=== PATIENT | female | born 1955 | race Caucasian/White ===

== ENCOUNTER 2021-02-18 10:27 | Outpatient (REF) | payer MEDICARE, MEDICAID, SELFPAY | END 2021-02-18 10:28 | disposition home or self-care (01) | LOC: HO.LAB 10:27 | PROVIDERS: Visit Provider Internal Medicine | DX: Z20.822 Contact with and (suspected) exposure to COVID-19 (principal) | CPT/HCPCS: C9803; U0003; U0005 ==

== ENCOUNTER 2021-04-25 10:35 | Outpatient (REF) | payer MEDICARE, MEDICAID, SELFPAY ==
--- NOTE | ~2021-04-25 | US_ITS ---
EXAMINATION: US VENOUS ULTRASOUND WITH DOPPLER LOWER EXTREMITY, RIGHT CLINICAL INFORMATION: Right lower extremity pain and swelling. Assess for occult DVT. COMPARISON: None TECHNIQUE: Ultrasound of the deep veins is performed from the hip to the calf with compression sonography and color and pulse Doppler assessment. Spectral analysis with color-flow imaging is performed. FINDINGS: There is normal venous compression and respiratory variation and augmented flow. The visualized common femoral vein, superficial femoral vein, profunda femoral vein, popliteal vein, and the trifurcation region shows no evidence of deep venous thrombosis. No popliteal fossa cyst demonstrated. US/US venous duplex LE RT IMPRESSION: No DVT demonstrated in the right lower extremity.
== END 2021-04-25 10:36 | disposition home or self-care (01) ==
LOC: HO.US 10:35
PROVIDERS: PCP Internal Medicine; Visit Provider Emergency Medicine
DX: M79.604 Pain in right leg (principal)
CPT/HCPCS: 93971

== ENCOUNTER 2021-06-16 11:36 | Outpatient (REF) | payer MEDICARE, MEDICAID, SELFPAY ==
--- NOTE | ~2021-06-16 | MM_ITS ---
EXAMINATION: MM SCREENING DIGITAL BREAST TOMOSYNTHESIS, BILATERAL CLINICAL INFORMATION: Screening. Asymptomatic. Prior history benign excisional left breast surgery, 2016. The lifetime risk of breast cancer based on the Tyrer-Cuzick Model is 10%. COMPARISON: Mammography: 09/29/2019, 03/28/2019, 03/18/2019, 03/08/2018, 03/07/2017 TECHNIQUE: Digital breast tomosynthesis is performed in both the craniocaudal and mediolateral oblique views along with computer-aided detection (CAD). Synthesized 2D images are generated from the tomosynthesis. FINDINGS: The breasts are heterogeneously dense, which may obscure small masses (ACR BI-RADS breast composition Category c). Parenchymal pattern is similar to prior studies. There is no developing density or interval mass or architectural abnormality. The right breast has stable punctate uniform round calcifications central breast mid depth similar to prior exams dating back to 2017. Left breast has post surgical changes posterior 11:30 o'clock position with mild scarring and benign oil cyst. There are new calcifications overlying the oil cyst, likely early dystrophic. Patient will be recalled for additional imaging. The axilla are unremarkable. MM/MM tomosynthesis screening BI IMPRESSION: 1. Left: New calcifications overlying left surgical scar, likely early dystrophic, associated with oil cyst. 2. Right: There are no significant changes from prior study. ASSESSMENT: BI-RADS 0: Incomplete - Need Additional Imaging Evaluation RECOMMENDATION: 1. Additional views of the left breast (magnification CC, magnification LM). 2. Radiology department staff will contact the patient for additional imaging. This patient's information was entered into a reminder system with a target due date for their next mammogram.
== END 2021-06-16 11:37 | disposition home or self-care (01) ==
LOC: HO.MAMMO 11:36
PROVIDERS: Visit Provider Internal Medicine
DX: Z12.31 Encounter for screening mammogram for malignant neoplasm of breast (principal)
CPT/HCPCS: 77063; 77067

== ENCOUNTER 2021-06-17 09:23 | Emergency (ER) | payer MEDICARE, SELFPAY ==
--- NOTE | ~2021-06-17 | US_ITS ---
EXAMINATION: US VENOUS ULTRASOUND WITH DOPPLER LOWER EXTREMITY, RIGHT CLINICAL INFORMATION: Rule out DVT. Pain COMPARISON: April 25, 2021 TECHNIQUE: Ultrasound of the deep veins is performed from the hip to the calf with compression sonography and color and pulse Doppler assessment. Spectral analysis with color-flow imaging is performed. FINDINGS: There is normal venous compression and respiratory variation and augmented flow. The visualized common femoral vein, superficial femoral vein, profunda femoral vein, popliteal vein, and the trifurcation region shows no evidence of deep venous thrombosis. There is no significant popliteal fossa cyst. No popliteal artery aneurysm. US/US venous duplex LE RT IMPRESSION: No acute DVT demonstrated in the right lower extremity.
--- NOTE | ~2021-06-17 | XR_ITS ---
EXAMINATION: XR TIBIA AND FIBULA, RIGHT CLINICAL INFORMATION: Tenderness right anterior distal lower extremity COMPARISON: None TECHNIQUE: AP and lateral views of the right tibia and fibula were obtained. FINDINGS: The bones and soft tissues are normal. No fracture. No osseous lesions. XR/XR tibia fibula RT 2V IMPRESSION: Unremarkable right tibia and fibula.
[2021-06-17 09:52] VITALS: BP 133/84; PULSE 88; RESP 18; TEMP 36.6; O2SAT 98; BMI 29.2
--- NOTE | 2021-06-17 10:05 | ED_ITS ---
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 No trauma, no falls. 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 CPA states patient was on antibiotics in the past, and since WEAPONS SPECIALIST has started working with the patient 1 week ago, she has noticed that the redness over the patient's right anterior jay has worsened. No fevers, no nausea, vomiting, or other complaints. Per pt's med list, she was placed on Doxy and Cefadroxil on 04/16/21 for 7 days. Related Data Previous Rx's Medication Instructions Recorded cephalexin 500 mg capsule 500 mg PO QID 7 Days #28 cap 06/17/21 Allergies Allergy/AdvReac Type Severity Reaction Status Date / Time No Known Allergies Allergy Verified 06/17/21 10:58 Review of Systems Constitutional: Constitutional: Denies body ache(s), Denies chills, Denies fatigue, Denies fever(s), Denies headache(s), Denies malaise and Denies weakness Eyes: Eyes: Denies diplopia ENT: Denies vertigo, Denies dizziness, Denies otalgia, Denies headache(s), Denies mouth pain, Denies post nasal drip, Denies sinus pain, Denies sinus pressure, Denies sore throat and Denies throat swelling Cardiovascular: Cardiovascular: Denies chest pain, Denies syncope, Denies leg edema, Denies lightheadedness, Denies Loss of Consciousness, Denies palpitations and Denies dyspnea Respiratory: Respiratory: Denies chest congestion, Denies cough and Denies dyspnea Gastrointestinal: Gastrointestinal: Denies abdominal pain, Denies hematochezia, Denies constipation, Denies diarrhea and Denies vomiting Musculoskeletal: Musculoskeletal: Reports no additional musculoskeletal complaints, Denies numbness and Denies tingling Integumentary/Breasts: Skin/Breast: Reports erythema, Reports rash and Reports skin pain Neurologic: Denies confusion, Denies vertigo, Denies dizziness, Denies syncope, Denies headache(s), Denies numbness, Denies Sensory deficit (Neuro), Denies tingling and Denies weakness Psychiatric: Psychiatric: Denies anxiety, Denies confusion and Denies depression Endocrine: Endocrine: Denies fatigue and Denies palpitations Allergic/Immunologic: Allergic/Immunologic: Denies throat swelling PMFSH Past Medical History Medical History (Updated 06/17/21 @ 12:39 by ANJELICA Monzon) Glaucoma Social History Social History Advance Directives: No Advance Directives Information Provided: No Physical Exam Vital Signs: Vital Signs: Last Vital Signs Temp 97.7 F 06/17/21 12:15 Pulse 58 06/17/21 12:15 Resp 15 06/17/21 12:15 BP 127/70 06/17/21 12:15 Pulse Ox 99 06/17/21 12:15 Body Mass Index 29.2 Const: General: No confusion Nutritional Appearance: well nourished Orientation/consciousness: No confusion Limitations: no limitations HENMT: Head: Yes normal to inspection, Yes normocephalic and Yes atraumatic Ears: hearing grossly normal bilaterally, external ears normal, TM's normal bilaterally and EAC's normal General nose exam: Normal external nose present Face and sinus: Yes normal facial exam and Yes sinuses nontender Mouth: Normal oral and palatal mucosa present Throat: Yes posterior oropharynx normal Eyes: Conjunctivae: conjunctivae normal Pupils: Equal, round and reactive pupils present EOM: EOMs intact bilaterally Neck: Neck: Yes full ROM, Yes no lymphadenopathy and Yes supple Resp: Effort & Inspection: normal respiratory effort and able to speak in complete sentences Auscultation: clear to auscultation bilaterally, no crackles, no rales, no rhonchi and no wheezes Cardio: Rate: regular rate Rhythm: regular rhythm Heart sounds: S1 normal heart sound present and S2 normal heart sound present GI: Inspection: Yes normal to inspection Palpation (GI): Soft to palpation, nontender, no guarding and not rigid Percussion: Yes normal to percussion Auscultation: normal bowel sounds Skin: Other: 3 cm skin redness on pt's distal right anterior jay. Patient has not talked lower extremity pulses, sensation, motor strength. Neuro: General: No confusion Cranial nerves: Yes Equal, round and reactive pupils present Sensory Exam: No Sensory deficit (Neuro) Extrem: General: Yes normal to inspection and Yes full ROM Psych: Appearance: grossly normal Affect: normal affect Attitude: cooperative Thought process: Normal thought process present Course Course Course Narrative: 58-year-old female presents for right leg redness, swelling, and warmth that is been worsening for last week. History of cellulitis. 3 cm skin redness on pt's distal right anterior jay. Patient has intact lower extremity pulses, sensation, motor strength. Ultrasound negative for DVT, x-ray negative for fracture dislocation or osseous lesion. Gave Keflex, and prescribed 7 days of Keflex at home. Counseled patient to follow-up with the primary care provider. 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 Patient verbalized agreement and understanding of the plan Discharge Plan Discharge Clinical Impression: Cellulitis Qualifiers: Site of cellulitis: extremity Site of cellulitis of extremity: lower extremity Laterality: right Qualified Code(s): L03.115 - Cellulitis of right lower limb Patient Disposition: Home, Self-Care Instructions: Cellulitis (ED) Additional Instructions: Please take your antibiotics every 6 hours for the next 7 days. Please call your primary care provider for follow-up appointment in the next 2-3 days. Please return to the emergency room if you have fevers, worsening pain, wors ening redness, or any other new or concerning symptoms. Harvel hugo antibi?ticos cada 6 horas yaima los pr?ximos 7 d?as. Llame a cardenas proveedor de atenci?n primaria para jaspal charles de seguimiento en los pr?ximos 2-3 d?as. Regrese a la talia de emergencias si tiene fiebre, empeoramiento del dolor, empeoramiento del enrojecimiento o cualquier otro s?ntoma nuevo o preocupante Prescriptions: New cephalexin 500 mg capsule 500 mg PO QID 7 Days Qty: 28 RF: 0
[2021-06-17 10:40] VITALS: BP 122/77; PULSE 63; RESP 15; TEMP 37.2; O2SAT 99
[2021-06-17 12:15] VITALS: BP 127/70; PULSE 58; RESP 15; TEMP 36.5; O2SAT 99
[2021-06-17] MEDS: cephALEXin 500 MG CAPSULE PO (12:43)
--- NOTE | 2021-06-17 18:46 | ED.GENADULT ---
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 1 week ago Patient has not had any fevers or any other complaints Related Data Previous Rx's Medication Instructions Recorded cephalexin 500 mg capsule 500 mg PO QID 7 Days #28 cap 06/17/21 Allergies Allergy/AdvReac Type Severity Reaction Status Date / Time No Known Allergies Allergy Verified 06/17/21 10:58 Review of Systems Review of Systems: Constitutional : No Weight loss, No Fever, No Chills, No Night Sweats,No Fatigue, No Malaise ENT/Mouth : No Hearing loss, No Ear Pain, No Nasal Congestion, NoSinus Pain, No Hoarseness, No sore throat, No Rhinorrhea, NoSwallowing Difficulty Eyes: No Eye Pain, No Swelling, No Redness, No Foreign Body, NoDischarge, No Vision Changes Cardiovascular : No Chest Pain, No SOB, No Dyspnea on Exertion, NoOrthopnea, No Edema, No Palpitations Respiratory : No Cough, No Sputum, No Wheezing, No Smoke Exposure, No Dyspnea Gastrointestinal : No Nausea, No Vomiting, No Diarrhea, NoConstipation, No abdominal Pain, No Hematochezia, No Melena Genitourinary : no irregular bleeding, No Dysuria, No UrinaryFrequency, No Hematuria, No Urinary Incontinence, No Urgency, No FlankPain, No Urinary Flow Changes, No Hesitancy Musculoskeletal : No joint pain, No Myalgias, No Joint Swelling Skin : rash Neuro : No Weakness, No Numbness, No Paresthesias, No Loss ofConsciousness, No Dizziness, No Headache Psych : mild anxiety, tremors in hands, , No Depression, No SI/HI/AH/VH, No Social Issues, Endocrine : No Polyuria, No Polydipsia, No Temperature Intolerance [facility] Past Medical History Medical History (Updated 06/17/21 @ 12:39 by ANJELICA Monzon) Glaucoma Social History Social History Advance Directives: No Advance Directives Information Provided: No Physical Exam Vital Signs: Vital Signs: Last Vital Signs Temp 97.7 F 06/17/21 12:15 Pulse 58 06/17/21 12:15 Resp 15 06/17/21 12:15 BP 127/70 06/17/21 12:15 Pulse Ox 99 06/17/21 12:15 Body Mass Index 29.2 Const: General: cooperative, no acute distress, well developed, alert and awake Nutritional Appearance: well nourished Orientation/consciousness: patient oriented x3 Limitations: no limitations Eyes: Pupils: Equal, round and reactive pupils present Neck: Neck: Yes full ROM, Yes no lymphadenopathy and Yes supple Resp: Effort & Inspection: normal respiratory effort and able to speak in complete sentences Auscultation: clear to auscultation bilaterally, no crackles, no rales, no rhonchi and no wheezes Cardio: Rate: regular rate Rhythm: regular rhythm Heart sounds: S1 normal heart sound present and S2 normal heart sound present GI: Inspection: Yes normal to inspection Palpation (GI): Soft to palpation, nontender, no guarding and not rigid Percussion: Yes normal to percussion Auscultation: normal bowel sounds Skin: Rashes: rashes noted maculopapular rash right anterior leg Neuro: General: patient oriented x3, tone normal and moves all extremities Cranial nerves: Yes Equal, round and reactive pupils present Extrem: General: Yes normal to inspection and Yes full ROM Psych: Appearance: grossly normal Affect: normal affect Attitude: cooperative Thought process: Normal thought process present Course Course Course Narrative: 66-year-old female with worsening 3 cm area on right anterior distal jay that is red, swollen, and warm. X-ray is unremarkable, ultrasound shows no DVT. Send patient home on cephalexin, counseled return precautions. Discharge Plan Discharge Clinical Impression: Cellulitis Qualifiers: Site of cellulitis: extremity Site of cellulitis of extremity: lower extremity Laterality: right Qualified Code(s): L03.115 - Cellulitis of right lower limb Patient Disposition: Home, Self-Care Instructions: Cellulitis (ED) Additional Instructions: Please take your antibiotics every 6 hours for the next 7 days. Please call your primary care provider for follow-up appointment in the next 2-3 days. Please return to the emergency room if you have fevers, worsening pain, worsening redness, or any other new or concerning symptoms. [place] hugo antibi?ticos cada 6 horas yaima los pr?ximos 7 d?as. Llame a cardenas proveedor de atenci?n primaria para jaspal charles de seguimiento en los pr?ximos 2-3 d?as. Regrese a la talia de emergencias si tiene fiebre, empeoramiento del dolor, empeoramiento del enrojecimiento o cualquier otro s?ntoma nuevo o preocupante Prescriptions: New cephalexin 500 mg capsule 500 mg PO QID 7 Days Qty: 28 RF: 0 Interventions: ED Discharge Assessment Last Done: 06/17/21 13:14 Discharge Date/Time: 06/17/21 13:15
== END 2021-06-17 13:15 | disposition home or self-care (01) ==
PROVIDERS: Emergency Provider Emergency Medicine; PCP Internal Medicine
DX: L03.115 Cellulitis of right lower limb (principal); R60.0 Localized edema; Z79.899 Other long term (current) drug therapy
CPT/HCPCS: 73590; 93971; 99283; 99284

== ENCOUNTER 2021-06-24 10:46 | Emergency (ER) | payer MEDICARE, SELFPAY ==
--- NOTE | ~2021-06-24 | XR_ITS ---
EXAMINATION: XR ANKLE, RIGHT CLINICAL INFORMATION: Pain COMPARISON: None TECHNIQUE: AP, lateral, and mortise views of the right ankle. FINDINGS: The bones and soft tissues are notable for bulky calcaneal spurring.. No fracture. Alignment is anatomic. Joint spaces are maintained. No joint effusion. XR/XR ankle RT 2V IMPRESSION: No fracture.
[2021-06-24 11:14] VITALS: BP 142/79; PULSE 71; RESP 20; TEMP 36.6; O2SAT 97; BMI 21.0
[2021-06-24 11:38] LABS: MANUAL DIFF FLAG NO
[2021-06-24 11:49] LABS: Basophils Percent Auto 0.6 % (0-2); Eosinophils Absolute Auto 0.1 X10*3/uL (0.0-0.4); Eosinophils Percent Auto 0.8 % (0-4); Hematocrit 40.5 % (37-47); Hemoglobin 13.5 g/dl (12.0-16.0); Imm Gran Abs Auto 0.02 X10*3/uL (0.00-0.03); Imm Gran Pct Auto 0.3 % (0.0-0.4); Lymphocytes Absolute Auto 1.4 X10*3/uL (1.2-4.9); Mean Corpuscular HGB Conc 33.3 g/dl (31.0-35.0); Mean Corpuscular Hemoglobin 30.7 pg (27.0-33.0); Mean Platelet Volume 10.3 fL (9.4-12.3); Monocytes Absolute Auto 0.6 X10*3/uL (0.1-1.2); Monocytes Percent Auto 8.4 % (2-11); Neutrophils Absolute Auto 4.4 X10*3/uL (2.0-8.3); Neutrophils Percent Auto 67.9 % (45-73); Platelet Count 294 X10*3/uL (160-400); Red Cell Distribution Width 13.1 % (11.0-16.0); White Blood Count 6.5 X10*3/uL (4.8-10.8)
[2021-06-24 12:22] LABS: Anion Gap 9 (12-20); Blood Urea Nitrogen 15 mg/dL (9-16); Calcium 9.8 mg/dL (8.4-10.2); Carbon Dioxide 30 mmol/L (22-29); Chloride 108 mmol/L (96-108); Creatinine Clr Calc Pharmacy 59.1; Estimated Glomerular Filt Rate > 60; Glucose Random 76 mg/dL (60-115); Potassium 3.7 mmol/L (3.3-5.1); Sodium 143 mmol/L (135-145)
--- NOTE | 2021-06-24 17:03 | ED.GENADULT ---
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 Patient declined any fever or chills. Patient reported improvement of the right lower leg cellulitis with 5 days of antibiotic. Patient had multiple x-rays of her right lower extremities which showed no osteomyelitis. Related Data Previous Rx's Medication Instructions Recorded cephalexin 500 mg capsule 500 mg PO QID 7 Days #28 cap 06/17/21 doxycycline hyclate 100 mg tablet 100 mg PO BID #14 tab 06/24/21 Allergies Allergy/AdvReac Type Severity Reaction Status Date / Time No Known Allergies Allergy Verified 06/17/21 10:58 Review of Systems Review of Systems: All other systems are reviewed and are negative Constitutional: Reports as per HPI and Reports no additional constitutional complaints Eyes: Reports as per HPI and Reports no additional eye complaints Reports system reviewed and no additional complaints, except as documented Cardiovascular: Reports as per HPI and Reports no additional cardiovascular complaints Respiratory: Reports as per HPI and Reports no additional respiratory complaints Gastrointestinal: Reports as per HPI and Reports no additional gastrointestinal complaints Genitourinary: Reports no additional female genitourinary complaints Musculoskeletal: Reports no additional musculoskeletal complaints Skin/Breast: Reports system reviewed and no additional complaints, except as docu Psychiatric: Reports no additional psychiatric complaints Endocrine: Reports no additional endocrine complaints Hematologic/Lymphatic: Reports no additional hematologic/lymphatic complaints Allergic/Immunologic: Reports no additional allergic/immunologic complaints Reports system reviewed and no additional complaints, except as documented and Reports Abnormal speech present [facility] Past Medical History Medical History Glaucoma Social History Social History Advance Directives: No Advance Directives Information Provided: No Physical Exam Vital Signs: Vital Signs: Last Vital Signs Temp 97.8 F 06/24/21 11:14 Pulse 71 06/24/21 11:14 Resp 20 06/24/21 11:14 BP 142/79 H 08/20/21 11:14 Pulse Ox 97 06/24/21 11:14 Body Mass Index 21.0 Vital signs have been reviewed as appeared to be correct. Blood pressure normal. Heart rate normal. Respiration rate normal. Temperature normal. Oxygen saturation normal. Appearance: Alert. Oriented X3. No acute distress. Head: Normal external exam. Normocephalic. Atraumatic. No Verma signs noted. No raccoon eyes noted Eyes: PERRLA. EOMI. Conjunctiva and sclera normal. Eyelids normal. ENT: TM's Normal. Pharynx normal. Uvula midline. Moist mucous membranes. No trismus noted. No drooling noted. No muffled voice noted. Neck: Normal inspection. Neck supple. FROM. No adenopathy. Thyroid Normal. No meningeal signs. No neck mass noted. CVS: Normal heart rate and rhythm. Heart sound normal. No murmurs noted. Pulses normal throughout. Respiratory: No respiratory distress. Painless inspiration. Breath sounds normal. No wheezes/rales/rhonchi noted. Chest nontender. No accessory muscle usage noted or decreased air movement noted. Abdomen: Soft and nontender. Bowel sounds normal in all 4 quadrants. No distention noted. No organomegaly noted. No visible injury noted. Back: No CVA tenderness. Full range of motion noted. Skin: Skin warm and dry. Normal skin color. Normal skin turgor. No rashes/lesions/lacerations noted. Extremities: 2 x 2 cm area of mild tenderness on the medial aspect of her right lower leg, surrounded by area of mild redness, hotness, tenderness, no fluctuation or abscess. Neuro: Oriented X 3. Cranial nerve exam: II-XII are grossly intact No motor deficit. No sensory deficit. Reflexes normal. Course Course Course Narrative: 66-year-old female came in for a re-evaluation of her right lower leg cellulitis patient was taking Keflex for the last 5 days with partial improvement. X-ray showed no osteomyelitis, labs and x-ray showing no concern of severe sepsis. Medical Decision Making Lab Data Lab results reviewed: Yes I reviewed the patient's lab results. Result diagrams: 06/24/21 11:33 06/24/21 11:33 Labs: Lab Results 06/24/21 06/24/21 Range/Units 11:33 11:33 WBC 6.5 (4.8-10.8) X10*3/uL RBC 4.40 (4.20-5.50) X10*6/uL Hgb 13.5 (12.0-16.0) g/dl Hct 40.5 (37-47) % MCV 92.0 (80-98) fL MCH 30.7 (27.0-33.0) pg MCHC 33.3 (31.0-35.0) g/dl RDW 13.1 (11.0-16.0) % Plt Count 294 (160-400) X10*3/uL MPV 10.3 (9.4-12.3) fL Immature Gran % (Auto) 0.3 (0.0-0.4) % Neut % (Auto) 67.9 (45-73) % Lymph % (Auto) 22.0 (20-40) % [place] % (Auto) 8.4 (2-11) % Eos % (Auto) 0.8 (0-4) % Baso % (Auto) 0.6 (0-2) % Lymph # (Auto) 1.4 (1.2-4.9) X10*3/uL [place] # (Auto) 0.6 (0.1-1.2) X10*3/uL Eos # (Auto) 0.1 (0.0-0.4) X10*3/uL Baso # (Auto) 0.0 (0.0-0.2) X10*3/uL Abs Immat Gran (auto) 0.02 (0.00-0.03) X10*3/uL Absolute Neuts (auto) 4.4 (2.0-8.3) X10*3/uL Absolute Nucleated RBC 0.000 (0.0-0.012) X10*3/uL Nucleated RBC % (auto) 0.0 (0.0-0.2) /100WBC Sodium 143 (135-145) mmol/L Potassium 3.7 (3.3-5.1) mmol/L Chloride 108 (96-108) mmol/L Carbon Dioxide 30 H (22-29) mmol/L Anion Gap 9 L (12-20) BUN 15 (9-16) mg/dL Creatinine 0.72 (0.5-1.4) mg/dL Estim Creat Clear Calc 59.1 Estimated GFR > 60 Random Glucose 76 (60-115) mg/dL Calcium 9.8 (8.4-10.2) mg/dL Imaging Data Right lower extremities x-ray: Radiologist's impression: No acute pathology. Discharge Plan Discharge Clinical Impression: Cellulitis Qualifiers: Site of cellulitis of extremity: lower extremity Laterality: right Patient Disposition: Home, Self-Care Instructions: Cellulitis (ED) Prescriptions: New doxycycline hyclate 100 mg tablet 100 mg PO BID Qty: 14 RF: 0 No Action cephalexin 500 mg capsule 500 mg PO QID 7 Days Qty: 28 RF: 0 Referrals: Lizzie Ch MD [Primary Care Provider] - 2 days
== END 2021-06-24 17:50 | disposition home or self-care (01) ==
PROVIDERS: Emergency Provider Emergency Medicine; PCP Internal Medicine
DX: L03.115 Cellulitis of right lower limb (principal)
CPT/HCPCS: 36415; 73600; 80048; 85025; 99283

== ENCOUNTER 2021-06-27 14:04 | Outpatient (REF) | payer MEDICARE, SELFPAY ==
--- NOTE | ~2021-06-27 | MM_ITS ---
EXAMINATION: MM DIAGNOSTIC DIGITAL MAMMOGRAPHY, LEFT CLINICAL INFORMATION: Recall from screening for new calcifications overlying oil cyst, likely early dystrophic. Prior history benign left breast surgery performed in [place] 2016. COMPARISON: Mammography: 06/16/2021, 03/18/2019, 03/08/2018 TECHNIQUE: Digital mammography is performed in the following views: Magnification CC, magnification LM x2 FINDINGS: The breasts are heterogeneously dense, which may obscure small masses (ACR BI-RADS breast composition Category c). The additional magnification views confirm tightly grouped calcifications overlying the old area of scarring with central oil cyst. Calcifications are combination of coarse and some punctate round types, most certainly benign. Left breast calcifications will be reassessed again in 6 months. Results are discussed with the patient at time of visit, using an bus inspector. MM/MM added views LT IMPRESSION: Benign-appearing calcifications overlying small oil cyst in area of old surgical scarring. ASSESSMENT: BI-RADS 3: Probably Benign RECOMMENDATION: Diagnostic left mammography in 6 months. This patient's information was entered into a reminder system with a target due date for their next mammogram.
== END 2021-06-27 14:05 | disposition home or self-care (01) ==
LOC: HO.MAMMO 14:04
PROVIDERS: Visit Provider Internal Medicine
DX: R92.1 Mammographic calcification found on diagnostic imaging of breast (principal)
CPT/HCPCS: 77065

== ENCOUNTER → 2021-10-26 10:27 | Outpatient (BNVA) | payer MEDICARE, MEDICAID, SELFPAY | PROVIDERS: PCP Internal Medicine; Referring Provider Internal Medicine; Visit Provider Nurse Practitioner Family | DX: Z12.11 Encounter for screening for malignant neoplasm of colon (principal) | CPT/HCPCS: 99202 ==

== ENCOUNTER 2021-11-25 10:20 | Outpatient (REF) | payer MEDICARE, MEDICAID, SELFPAY ==
--- NOTE | ~2021-11-25 | MM_ITS ---
EXAMINATION: MM DIAGNOSTIC DIGITAL BREAST TOMOSYNTHESIS, LEFT CLINICAL INFORMATION: Short interval six-month follow-up probable benign early dystrophic calcifications overlying oil cyst. Prior history benign left breast surgery performed in [place], 2016. The lifetime risk of breast cancer based on the Tyrer-Cuzick Model is 10%. COMPARISON: Mammography: 06/27/2021, 06/16/2021 (BI-RADS 0), 03/18/2019 TECHNIQUE: Digital breast tomosynthesis is performed in both the craniocaudal and mediolateral oblique views along with computer-aided detection (CAD). Synthesized 2D images are generated from the tomosynthesis. Additional magnification CC and magnification ML views are provided. FINDINGS: The breasts are heterogeneously dense, which may obscure small masses (ACR BI-RADS breast composition Category c). Parenchymal pattern is similar to prior studies. There is old post surgical changes with scarring posterior 11:30 o'clock position. There is small oil cyst within the scar. Calcifications at surface of oral cyst appear coarse and likely dystrophic, similar to prior diagnostic exam. The remainder the left breast is unremarkable. Left breast calcifications will be reassessed again at time of annual bilateral mammography, due in 6 months. Results are provided to the patient at time of visit by the technologist. MM/MM tomosynthesis diagnostic LT IMPRESSION: No significant change probable benign dystrophic calcifications in surgical scar. ASSESSMENT: BI-RADS 3: Probably Benign RECOMMENDATION: Diagnostic mammography at time of annual bilateral mammography, due in 6 months. This patient's information was entered into a reminder system with a target due date for their next mammogram.
== END 2021-11-25 10:21 | disposition home or self-care (01) ==
LOC: HO.MAMMO 10:20
PROVIDERS: PCP Internal Medicine; Visit Provider Internal Medicine
DX: R92.1 Mammographic calcification found on diagnostic imaging of breast (principal)
CPT/HCPCS: 77061; 77065

== ENCOUNTER 2022-05-29 09:20 | Outpatient (REF) | payer MEDICARE, MEDICAID, SELFPAY ==
--- NOTE | ~2022-05-29 | MM_ITS ---
EXAMINATION: MM DIAGNOSTIC DIGITAL BREAST TOMOSYNTHESIS, BILATERAL CLINICAL INFORMATION: Due for yearly. Also follow-up probable benign calcifications left breast. Prior history benign left excisional biopsy performed in [place], 2016. Family history breast cancer, sister. The lifetime risk of breast cancer based on the Tyrer-Cuzick Model is 8%. COMPARISON: Mammography: 11/25/2021, 06/27/2021, 06/16/2021, 09/29/2019, 03/28/2019, 03/08/2018 TECHNIQUE: Digital breast tomosynthesis is performed in both the craniocaudal and mediolateral oblique views along with computer-aided detection (CAD). Synthesized 2D images are generated from the tomosynthesis. Additional magnification left CC and magnification left ML views are obtained. FINDINGS: The breasts are heterogeneously dense, which may obscure small masses (ACR BI-RADS breast composition Category c). Parenchymal pattern is similar to prior studies and there is no developing density or interval architectural abnormality. The axilla and skin contours are unremarkable. Right breast has stable loosely grouped round calcifications central 12:30 o'clock position. Left breast has postsurgical changes posterior 11:00 with oil cyst and associated dystrophic calcifications overlying the cyst. Left calcifications will be reassessed again at next bilateral annual mammography to long-term surveillance. Results are provided to the patient at time of visit by the technologist. MM/MM tomosynthesis diagnostic BI IMPRESSION: Left: -Postsurgical changes with associated probable benign calcifications overlying incidental oil cyst. Right: -No significant changes from prior studies. ASSESSMENT: BI-RADS 3: Probably Benign RECOMMENDATION: Magnification views left breast at time of next annual bilateral mammography, due in 1 year. This patient's information was entered into a reminder system with a target due date for their next mammogram.
== END 2022-05-29 09:21 | disposition home or self-care (01) ==
LOC: HO.MAMMO 09:20
PROVIDERS: Visit Provider Internal Medicine
DX: R92.1 Mammographic calcification found on diagnostic imaging of breast (principal)
CPT/HCPCS: 77062; 77066

== ENCOUNTER 2023-06-18 09:23 | Outpatient (REF) | payer OTHER, MEDICAID, SELFPAY ==
[2023-06-18 11:46] LABS: MANUAL DIFF FLAG NO
[2023-06-18 12:12] LABS: Basophils Percent Auto 0.6 % (0-2); Eosinophils Absolute Auto 0.1 X10*3/uL (0.0-0.4); Eosinophils Percent Auto 1.1 % (0-4); Hematocrit 39.4 % (37.0-47.0); Hemoglobin 12.7 g/dl (12.0-16.0); Imm Gran Abs Auto 0.02 X10*3/uL (0.00-0.03); Imm Gran Pct Auto 0.4 % (0.0-0.4); Lymphocytes Absolute Auto 1.5 X10*3/uL (1.2-4.9); Lymphocytes Percent Auto 32.1 % (20-40); Mean Corpuscular HGB Conc 32.2 g/dl (31.0-35.0); Mean Corpuscular Volume 92.9 fL (80.0-98.0); Mean Platelet Volume 10.5 fL (9.4-12.3); Monocytes Absolute Auto 0.5 X10*3/uL (0.1-1.2); Monocytes Percent Auto 9.5 % (2-11); Neutrophils Absolute Auto 2.7 x10*3/uL (2.0-8.3); Neutrophils Percent Auto 56.3 % (45-73); Platelet Count 298 X10*3/uL (160-400); Red Blood Count 4.24 X10*6/uL (4.20-5.50); Red Cell Distribution Width 13.9 % (11.0-16.0); White Blood Count 4.7 X10*3/uL (4.8-10.8)
[2023-06-18 12:53] LABS: Anion Gap 11 (12-20); Blood Urea Nitrogen 21 mg/dL (9-16); Calcium 9.1 mg/dL (8.4-10.2); Carbon Dioxide 26 mmol/L (22-29); Chloride 108 mmol/L (96-108); Estimated Glomerular Filt Rate > 60; Glucose Random 97 mg/dL (60-115); Potassium 4.2 mmol/L (3.3-5.1); Sodium 141 mmol/L (135-145)
[2023-06-18 13:07] LABS: Alanine Aminotransferase 12 U/L (0-31); Albumin Level 3.8 g/dL (3.5-5.0); Alkaline Phosphatase 91 U/L (39-117); Anion Gap 9 (12-20); Aspartate Amino Transferase 19 U/L (5-31); Bilirubin Total 0.3 mg/dL (0.0-1.0); Blood Urea Nitrogen 22 mg/dL (9-16); Calcium 9.1 mg/dL (8.4-10.2); Carbon Dioxide 29 mmol/L (22-29); Chloride 107 mmol/L (96-108); Estimated Glomerular Filt Rate > 60; Glucose Random 87 mg/dL (60-115); Sodium 141 mmol/L (135-145)
[2023-06-18 13:15] LABS: Cholesterol 163 mg/dL; HDL Cholesterol 47 mg/dL; LDL Cholesterol Calculated 102 mg/dl; Triglycerides 71 mg/dL
[2023-06-18 13:17] LABS: Cholesterol 162 mg/dL; HDL Cholesterol 47 mg/dL; LDL Cholesterol Calculated 101 mg/dl; Triglycerides 70 mg/dL
[2023-06-18 14:14] LABS: CT PCR NOT DETECTED (Not Detect.); NG PCR NOT DETECTED (Not Detect.)
[2023-06-18 18:10] LABS: Reflex LDLD? No
[2023-06-19 04:33] LABS: Syphilis Screen Nonreactive (Nonreactive)
[2023-06-19 05:24] LABS: ~HepC Num1 0.15 S/CO (0.00-0.79); ~Hepatitis C Antibody Nonreactive (Nonreactive)
[2023-06-19 12:10] LABS: Absolute CD4 Count 227 cells/uL (490-1740); Absolute CD8 Count 739 cells/uL (180-1170); Absolute Lymphocytes 1457 cells/uL (850-3900); CD4 CD8 Ratio 0.31 (0.86-5.00); Percent CD4 Cells 16 % (30-61); Percent CD8 Cells 51 % (12-42)
[2023-06-20 21:28] LABS: TS Negative Control Passed; TS Panel A 7; TS Panel B 5; TS Positive Control Passed; TSpotTB Borderline (Negative)
[2023-06-21 15:54] LABS: HIV RNA PCR Qn Copies <20 DETECTED copies/mL (NOT DETECTED); HIV RNA PCR Qn Log Copies <1.30 DETECTED (NOT DETECTED)
== END 2023-06-18 09:24 | disposition home or self-care (01) ==
LOC: HO.HHCL 09:23
PROVIDERS: Referring Provider Family Medicine; Visit Provider Internal Medicine
DX: B20 Human immunodeficiency virus [HIV] disease (principal); M81.0 Age-related osteoporosis without current pathological fracture; I87.2 Venous insufficiency (chronic) (peripheral); I83.90 Asymptomatic varicose veins of unspecified lower extremity; N60.09 Solitary cyst of unspecified breast
CPT/HCPCS: 0353U; 36415; 80048; 80053; 80061; 82306; 84443; 85025; 86360; 86481; 86780; 86803; 87536

== ENCOUNTER 2023-06-22 12:20 | Outpatient (REF) | payer OTHER, MEDICAID, SELFPAY ==
--- NOTE | ~2023-06-22 | MM_ITS ---
EXAMINATION: MM DIAGNOSTIC DIGITAL BREAST TOMOSYNTHESIS, BILATERAL CLINICAL INFORMATION: Diagnostic for follow-up of likely dystrophic calcifications in the slightly upper slightly medial left breast, posterior one third. Patient also due for bilateral screening exam. Patient has history of excisional biopsy in the left breast slightly upper slightly medial aspect. The lifetime risk of breast cancer based on the Tyrer-Cuzick Model is 15%. COMPARISON: Mammography: 05/29/2022, 11/25/2021, 06/27/2021, 06/16/2021, and dating back to 2019. TECHNIQUE: Digital breast tomosynthesis is performed in both the craniocaudal and mediolateral oblique views along with computer-aided detection (CAD). Synthesized 2D images are generated from the tomosynthesis. In addition, 2-D spot magnification views in the CC and mediolateral projections were obtained. Also, a 3-D left CC spot compression view was obtained. FINDINGS: The breasts are heterogeneously dense, which may obscure small masses (ACR BI-RADS breast composition Category c). Calcifications in the left breast upper slightly inner quadrant, posterior one third, are associated with an oil cyst and are dystrophic, consistent with fat necrosis. These are benign and no further follow-up is deemed necessary. There are benign-appearing unchanged loosely grouped punctate calcifications in the central right breast, which have remained stable since 2019. A focal asymmetry in the outer left breast completely effaces with spot compression view, consistent with summation artifact of normal overlapping tissues. There is otherwise no suspicious abnormality in either breast. Results were provided to the patient at time of visit by the technologist. MM/MM tomosynthesis diagnostic BI IMPRESSION: Benign findings bilateral breasts. No findings suspicious for malignancy. Calcifications central slightly inner left breast, posterior one third, are dystrophic and benign. No further follow-up recommended. Recommend the patient return to routine annual screening to include both breasts. ASSESSMENT: BI-RADS BI-RADS 2 - Benign Findings RECOMMENDATION: 1 year F/U This patient's information was entered into a reminder system with a target due date for their next mammogram.
== END 2023-06-22 12:21 | disposition home or self-care (01) ==
LOC: HO.MAMMO 12:20
PROVIDERS: Visit Provider Internal Medicine
DX: R92.1 Mammographic calcification found on diagnostic imaging of breast (principal)
CPT/HCPCS: 77062; 77066

== ENCOUNTER → 2023-06-22 13:00 | Outpatient (BNV) | payer OTHER, MEDICAID, SELFPAY | PROVIDERS: Visit Provider Radiology Diagnostic Radiology | DX: R92.1 Mammographic calcification found on diagnostic imaging of breast (principal) | CPT/HCPCS: 77062; 77066 ==

== ENCOUNTER 2024-02-01 10:46 | Outpatient (REF) | payer OTHER, MEDICAID, SELFPAY ==
[2024-02-01 11:44] LABS: MANUAL DIFF FLAG NO
[2024-02-01 11:48] LABS: Basophils Percent Auto 0.5 % (0-2); Eosinophils Absolute Auto 0.1 X10*3/uL (0.0-0.4); Eosinophils Percent Auto 0.8 % (0-4); Hematocrit 41.7 % (37.0-47.0); Hemoglobin 13.5 g/dl (12.0-16.0); Imm Gran Abs Auto 0.02 X10*3/uL (0.00-0.03); Imm Gran Pct Auto 0.3 % (0.0-0.4); Lymphocytes Absolute Auto 1.7 X10*3/uL (1.2-4.9); Mean Corpuscular HGB Conc 32.4 g/dl (31.0-35.0); Mean Corpuscular Hemoglobin 29.3 pg (27.0-33.0); Mean Corpuscular Volume 90.7 fL (80.0-98.0); Monocytes Absolute Auto 0.6 X10*3/uL (0.1-1.2); Monocytes Percent Auto 9.1 % (2-11); Neutrophils Absolute Auto 4.2 x10*3/uL (2.0-8.3); Neutrophils Percent Auto 63.3 % (45-73); Platelet Count 330 X10*3/uL (160-400); Red Cell Distribution Width 13.8 % (11.0-16.0); White Blood Count 6.6 X10*3/uL (4.8-10.8)
[2024-02-01 12:50] LABS: Alanine Aminotransferase 11 U/L (0-31); Albumin Level 4.1 g/dL (3.5-5.0); Alkaline Phosphatase 103 U/L (39-117); Anion Gap 11 (12-20); Aspartate Amino Transferase 21 U/L (5-31); Bilirubin Total 0.3 mg/dL (0.0-1.0); Blood Urea Nitrogen 19 mg/dL (9-16); Calcium 10.2 mg/dL (8.4-10.2); Carbon Dioxide 32 mmol/L (22-29); Chloride 101 mmol/L (96-108); Estimated Glomerular Filt Rate > 60; Glucose Random 72 mg/dL (60-115); Sodium 140 mmol/L (135-145); Total Protein 8.5 g/dL (6.5-8.0)
[2024-02-03 22:09] LABS: TS Negative Control Passed; TS Panel A 3; TS Panel B 1; TS Positive Control Passed; TSpotTB Negative (Negative)
[2024-02-04 08:33] LABS: HBS Num1 0.31 mIU/mL (0-7.99); HBsAGNum1 0.33 S/CO (0.00-0.99); Hepatitis B Core Antibody Nonreactive (Nonreactive); Hepatitis B Surface Antigen Negative (Negative); ~Hepatitis B Surface Antibody NONREACTIVE (Nonreactive)
[2024-02-04 09:10] LABS: Absolute CD3 Count 1139 cells/uL (840-3060); Absolute CD4 Count 250 cells/uL (490-1740); Absolute CD8 Count 821 cells/uL (180-1170); Absolute Lymphocytes 1671 cells/uL (850-3900); CD4 CD8 Ratio 0.31 (0.86-5.00); Percent CD3 Cells 68 % (57-85); Percent CD4 Cells 15 % (30-61); Percent CD8 Cells 49 % (12-42)
[2024-02-04 23:03] LABS: Mumps Virus IgG Antibody <9.00 AU/mL; Rubella IgG Antibody 3.42 Index; Rubeola IgG (Measles) >300.00 AU/mL
[2024-02-05 18:23] LABS: HIV RNA PCR Qn Copies <20 DETECTED copies/mL (NOT DETECTED); HIV RNA PCR Qn Log Copies <1.30 DETECTED (NOT DETECTED)
== END 2024-02-01 10:47 | disposition home or self-care (01) ==
LOC: HO.HHCL 10:46
PROVIDERS: Visit Provider Student in an Organized Health Care Education/Training Program
DX: Z21 Asymptomatic human immunodeficiency virus [HIV] infection status (principal)
CPT/HCPCS: 36415; 80053; 85025; 86359; 86360; 86481; 86704; 86706; 86735; 86762; 86765; 86787; 87340; 87536; 87661

== ENCOUNTER 2024-03-28 17:18 | Outpatient (REF) | payer OTHER, MEDICAID, SELFPAY ==
[2024-03-29 06:11] LABS: CT PCR NOT DETECTED (Not Detect.); NG PCR NOT DETECTED (Not Detect.)
[2024-03-29 08:11] LABS: Bacterial Vaginosis PCR NEGATIVE (Negative); Candida Group PCR NOT DETECTED (Not Detect); Candida glab krusei PCR NOT DETECTED (Not Detect); Trichomonas vaginalis PCR NOT DETECTED (Not Detect)
[2024-04-02 22:47] LABS: HPV mRNA E6/E7 rflx Not Detected (Not Detected)
== END 2024-03-28 17:19 | disposition home or self-care (01) ==
LOC: HO.HHCLNP 17:18
PROVIDERS: Visit Provider Internal Medicine
DX: Z12.4 Encounter for screening for malignant neoplasm of cervix (principal); Z20.2 Contact with and (suspected) exposure to infections with a predominantly sexual mode of transmission
CPT/HCPCS: 0352U; 0353U; 87624; 88142

== ENCOUNTER 2024-06-23 12:51 | Outpatient (REF) | payer OTHER, SELFPAY ==
--- NOTE | ~2024-06-23 | MM_ITS ---
EXAMINATION: MM SCREENING DIGITAL BREAST TOMOSYNTHESIS, BILATERAL CLINICAL INFORMATION: Screening. Asymptomatic. The patient has a history of prior medially located left breast excision for benign disease. COMPARISON: Mammography: This study is compared with prior exams dating back to 2020. TECHNIQUE: Digital breast tomosynthesis is performed in both the craniocaudal and mediolateral oblique views along with computer-aided detection (CAD). Synthesized 2D images are generated from the tomosynthesis. FINDINGS: The breasts are heterogeneously dense, which may obscure small masses (ACR BI-RADS breast composition Category c). There are no significant masses, abnormal calcifications, or other abnormalities. There is postsurgical change in the upper inner quadrant of the left breast. A few,, bilateral, benign calcifications are also present. MM/MM tomosynthesis screening BI IMPRESSION: No mammographic evidence of malignancy. ASSESSMENT: BI-RADS BI-RADS 2 - Benign Findings RECOMMENDATION: Routine annual mammography screening. 1 year F/U This examination should not preclude the clinical evaluation of a suspicious palpable abnormality. This patient's information was entered into a reminder system with a target due date for their next mammogram. Electronically signed by: Emily Cormier MD 07/21/2024 10:07 AM EDT
== END 2024-06-23 12:52 | disposition home or self-care (01) ==
LOC: HO.MAMMO 12:51
PROVIDERS: PCP Internal Medicine; Visit Provider Internal Medicine
DX: Z12.31 Encounter for screening mammogram for malignant neoplasm of breast (principal)
CPT/HCPCS: 77063; 77067

== ENCOUNTER → 2024-06-23 13:45 | Outpatient (BNV) | payer OTHER, SELFPAY | PROVIDERS: PCP Internal Medicine; Visit Provider Radiology Diagnostic Radiology | DX: Z12.31 Encounter for screening mammogram for malignant neoplasm of breast (principal) | CPT/HCPCS: 77063; 77067 ==

== ENCOUNTER 2024-06-27 09:29 | Outpatient (REF) | payer OTHER, SELFPAY ==
--- NOTE | ~2024-06-27 | US_ITS ---
EXAMINATION: US ABDOMEN COMPLETE CLINICAL INFORMATION: Patient with ongoing left upper quadrant pain. COMPARISON: None available. TECHNIQUE: Real-time imaging of the abdominal viscera. FINDINGS: PANCREAS: Normal. ABDOMINAL AORTA: Aorta INFERIOR VENA CAVA: Visualized portions are normal. LIVER: Normal. The liver is normal in size. The liver contour is normal. Parenchymal echogenicity is normal. No focal hepatic lesion. There is no intrahepatic biliary duct dilatation seen. GALLBLADDER: Normal. The gallbladder is physiologically distended without evidence of stones, sludge, polyps, wall thickening or pericholecystic fluid. COMMON BILE DUCT: Normal in caliber measuring 0.5 cm in diameter. RIGHT KIDNEY: Normal. No hydronephrosis. No renal calculi or focal parenchymal lesions. The kidney measures 9.5 cm in maximum dimension. LEFT KIDNEY: 5 mm nonobstructing mid pole renal stone. No hydronephrosis or focal parenchymal lesions. The kidney measures 9.4 cm in maximum dimension. SPLEEN: Normal. The spleen measures 8.4 cm in maximum dimension. FREE FLUID: None. US/US abdomen complete IMPRESSION: A 5 mm nonobstructing left renal stone. No hydronephrosis. Electronically signed by: Ibeth Garrido MD 07/14/2024 06:25 PM EDT
== END 2024-06-27 09:30 | disposition home or self-care (01) ==
LOC: HO.US 09:29
PROVIDERS: PCP Student in an Organized Health Care Education/Training Program; Visit Provider Student in an Organized Health Care Education/Training Program
DX: R10.12 Left upper quadrant pain (principal)
CPT/HCPCS: 76700

== ENCOUNTER 2024-07-24 13:26 | Outpatient (REF) | payer OTHER, SELFPAY ==
--- NOTE | ~2024-07-24 | US_ITS ---
EXAMINATION: US NONINVASIVE ASSESSMENT OF THE RIGHT LOWER EXTREMITY WITH ARTERIAL DUPLEX AND ANKLE BRACHIAL INDICES (ABIS) CLINICAL INFORMATION: Peripheral vascular disease COMPARISON: None available. TECHNIQUE: Duplex Doppler techniques with waveform analysis and measurement of velocities in the common femoral, profunda femoris, superficial femoral, popliteal and tibial arteries were performed. In addition, ankle pulse volume recordings, ankle pressure measurements and ankle brachial indices were obtained of the right lower extremity arterial system. The study was performed only at rest. FINDINGS: NONINVASIVE ASSESSMENT OF THE ARTERIES OF BILATERAL LOWER EXTREMITIES WITH ABIs: RIGHT LEG: Ankle-brachial index: 1.1 Ankle PVR: Normal LEFT LEG: Ankle-brachial index: 1.03 Left ankle PVR: Normal AMANDA Reference: 0.9 - 1.4 = normal - no significant arterial disease 0.7 - 0.89 = mild peripheral arterial disease 0.51 - 0.69 = moderate peripheral arterial disease 0.50 = severe peripheral arterial disease RIGHT LOWER EXTREMITY DUPLEX ULTRASOUND: Common femoral artery: 119 cm/s. Diastolic flow reversal: Triphasic Profunda femoris artery: 79.2 cm/s. Diastolic flow reversal: Triphasic Superficial femoral artery (proximal): 75.7 cm/s. Diastolic flow reversal: Triphasic Superficial femoral artery (mid): 72.7 cm/s. Diastolic flow reversal: Triphasic Superficial femoral artery (distal): 67.5 cm/s. Diastolic flow reversal: Triphasic Popliteal artery: 71.4 cm/s Diastolic flow reversal: Triphasic Posterior tibial artery: 73.6 cm/s Diastolic flow reversal: Biphasic Peroneal artery: 23.9 cm/s Phasicity: Biphasic Anterior tibial artery: 71.4 cm/s Phasicity: Triphasic Dorsalis pedis artery: 79.5 cm/s Phasicity: Triphasic US/US arterial duplex LE RT IMPRESSION: Normal noninvasive arterial evaluation and duplex arterial ultrasound of the right lower extremity Electronically signed by: Denver Bains MD 07/30/2024 04:11 PM EDT
--- NOTE | ~2024-07-24 | US_ITS ---
EXAMINATION: US NONINVASIVE ASSESSMENT OF THE RIGHT LOWER EXTREMITY WITH ARTERIAL DUPLEX AND ANKLE BRACHIAL INDICES (ABIS) CLINICAL INFORMATION: Peripheral vascular disease COMPARISON: None available. TECHNIQUE: Duplex Doppler techniques with waveform analysis and measurement of velocities in the common femoral, profunda femoris, superficial femoral, popliteal and tibial arteries were performed. In addition, ankle pulse volume recordings, ankle pressure measurements and ankle brachial indices were obtained of the right lower extremity arterial system. The study was performed only at rest. FINDINGS: NONINVASIVE ASSESSMENT OF THE ARTERIES OF BILATERAL LOWER EXTREMITIES WITH ABIs: RIGHT LEG: Ankle-brachial index: 1.1 Ankle PVR: Normal LEFT LEG: Ankle-brachial index: 1.03 Left ankle PVR: Normal AMANDA Reference: 0.9 - 1.4 = normal - no significant arterial disease 0.7 - 0.89 = mild peripheral arterial disease 0.51 - 0.69 = moderate peripheral arterial disease 0.50 = severe peripheral arterial disease RIGHT LOWER EXTREMITY DUPLEX ULTRASOUND: Common femoral artery: 119 cm/s. Diastolic flow reversal: Triphasic Profunda femoris artery: 79.2 cm/s. Diastolic flow reversal: Triphasic Superficial femoral artery (proximal): 75.7 cm/s. Diastolic flow reversal: Triphasic Superficial femoral artery (mid): 72.7 cm/s. Diastolic flow reversal: Triphasic Superficial femoral artery (distal): 67.5 cm/s. Diastolic flow reversal: Triphasic Popliteal artery: 71.4 cm/s Diastolic flow reversal: Triphasic Posterior tibial artery: 73.6 cm/s Diastolic flow reversal: Biphasic Peroneal artery: 23.9 cm/s Phasicity: Biphasic Anterior tibial artery: 71.4 cm/s Phasicity: Triphasic Dorsalis pedis artery: 79.5 cm/s Phasicity: Triphasic US/US AMANDA complete IMPRESSION: Normal noninvasive arterial evaluation and duplex arterial ultrasound of the right lower extremity Electronically signed by: Denver Bains MD 07/30/2024 04:11 PM EDT
== END 2024-07-24 13:27 | disposition home or self-care (01) ==
LOC: HO.US 13:26
PROVIDERS: PCP Student in an Organized Health Care Education/Training Program; Visit Provider Student in an Organized Health Care Education/Training Program
DX: M79.661 Pain in right lower leg (principal)
CPT/HCPCS: 93923; 93926

== ENCOUNTER 2024-08-25 17:07 | Outpatient (REF) | payer OTHER, SELFPAY ==
[2024-09-08 10:59] LABS: HPV MRNA E6/E7 Rectal DETECTED
[2024-09-10 16:54] LABS: HPV 16 RNA, Rectal NOT DETECTED; HPV 18/45 RNA Rectal NOT DETECTED
== END 2024-08-25 17:08 | disposition home or self-care (01) ==
LOC: HO.LNP 17:07
PROVIDERS: Visit Provider Student in an Organized Health Care Education/Training Program
DX: Z21 Asymptomatic human immunodeficiency virus [HIV] infection status (principal)
CPT/HCPCS: 87624; 87625; 88112

== ENCOUNTER 2024-09-15 14:34 | Outpatient (AMB) | payer OTHER, SELFPAY ==
--- NOTE | 2024-09-15 13:07 | A.OFFVIS_ITS ---
Intake Visit Reasons: kidney stones Intake Note: Patient is present for KIDNEY STONES Urology Medication:NONE Antibiotic Allergy:NONE Blood Thinner:NONE Rod Filler Required: No Allergies No Known Allergies Allergy (Verified 09/15/24 14:48) HPI Comments Details: Barbara is a 69 year old patient here as a new patient evaluation for kidney stones. She denies flank pain currently. Denies hematuria or irritative voiding symptoms Abdominal ultrasound 06/27/2024--5 mm left kidney stone Discussed treatment management to include conservative management versus ESWL, shockwave lithotripsy. CT stone protocol, confirm renal calculus versus renal vascular calcification. [facility] Medical History (Updated 09/15/24 @ 16:30 by Zenobia Bowie MD) Osteoporosis Chronic venous insufficiency of lower extremity HIV (human immunodeficiency virus infection) Glaucoma Surgical History (System 12/05/23 @ 16:21 by Aisha Kirkpatrick) H/O colonoscopy Social History (System 12/05/23 @ 16:21 by Aisha Kirkpatrick) Patient Tobacco Use Status: Never used Tobacco Review of Systems Const All systems reviewed & are unremarkable except as noted in HPI and below Reports no additional complaints Eyes Reports no additional complaints ENT Reports no additional complaints Card Reports no additional complaints Resp Reports no additional complaints GI Reports no additional complaints Reports as per HPI Musc Reports no additional complaints Skin/Breast Reports system reviewed and no additional complaints, except as documented Neuro Reports no additional complaints Psych Reports no additional complaints Endo Reports no additional complaints Tomas/Lymph Reports no additional complaints Aller/Immun Reports no additional complaints Physical Exam Const General: cooperative, healthy appearing and no acute distress Orientation/consciousness: patient oriented x3 HEENT Head: Yes normal to inspection, Yes normocephalic and Yes atraumatic Eyes Conjunctivae: conjunctivae normal Neck Neck: Yes normal visual inspection and Yes trachea midline Chest Chest palpation & inspection: normal inspection of the chest Resp Effort & Inspection: normal respiratory effort Cardio Rate: regular rate GI Inspection: Yes normal to inspection Neuro General: patient oriented x3 Psych Appearance: grossly normal Results AMB Urinalysis, Automated UA Leukoctes 0 Severino/uL Last Edit by ROSA Couch on 09/15/24 15:06 UA Nitrite Negative Last Edit by ROSA Couch on 09/15/24 15:06 UA Urobilinogen 0.2 mg/dL Last Edit by ROSA Couch on 09/15/24 15:0 6 UA Protein 15 mg/dL Last Edit by ROSA Couch on 09/15/24 15:06 UA pH 6.0 Last Edit by ROSA Couch on 09/15/24 15:06 UA Blood 10 Son/uL Last Edit by ROSA Couch on 09/15/24 15:06 UA Specific [place] 1.020 Last Edit by ROSA Couch on 09/15/24 15: 06 UA Ketone Negative Last Edit by ROSA Couch on 09/15/24 15:06 UA Bilirubin 1 mg/dL Last Edit by ROSA Couch on 09/15/24 15:06 UA Glucose 0 mg/dL Last Edit by ROSA Couch on 09/15/24 15:06 Results Reviewed Results Reviewed: Laboratory Last Values Urine pH (Auto) 6.0 09/15/24 15:05 Specific [place] (Auto) 1.020 09/15/24 15:05 Urine Protein (Auto) 15 mg/dL 09/15/24 15:05 Glucose (UA)(Auto) 0 mg/dL 09/15/24 15:05 Urine Ketones (Auto) Negative 09/15/24 15:05 Urine Blood (Auto) 10 Son/uL 09/15/24 15:05 Urine Nitrite (Auto) Negative 09/15/24 15:05 Urine Bilirubin (Auto) 1 mg/dL 09/15/24 15:05 Urine Urobilinogen (Auto) 0.2 mg/dL 09/15/24 15:05 Leukocyte Esterase (Auto) 0 Severino/uL 09/15/24 15:05 Date of Service: 06/27/24 US ABDOMEN COMPLETE CLINICAL INFORMATION: Patient with ongoing left upper quadrant pain. COMPARISON: None available. TECHNIQUE: Real-time imaging of the abdominal viscera. FINDINGS: PANCREAS: Normal. ABDOMINAL AORTA: Aorta INFERIOR VENA CAVA: Visualized portions are normal. LIVER: Normal. The liver is normal in size. The liver contour is normal. Parenchymal echogenicity is normal. No focal hepatic lesion. There is no intrahepatic biliary duct dilatation seen. GALLBLADDER: Normal. The gallbladder is physiologically distended without evidence of stones, sludge, polyps, wall thickening or pericholecystic fluid. COMMON BILE DUCT: Normal in caliber measuring 0.5 cm in diameter. RIGHT KIDNEY: Normal. No hydronephrosis. No renal calculi or focal parenchymal lesions. The kidney measures 9.5 cm in maximum dimension. LEFT KIDNEY: 5 mm nonobstructing mid pole renal stone. No hydronephrosis or focal parenchymal lesions. The kidney measures 9.4 cm in maximum dimension. SPLEEN: Normal. The spleen measures 8.4 cm in maximum dimension. FREE FLUID: None. IMPRESSION: A 5 mm nonobstructing left renal stone. No hydronephrosis. Assessment & Plan Assessment & Plan (1) Kidney stone on left side: Code(s): N20.0 - Calculus of kidney Category: Medical Plan CT stone protocol Orders: Orders AMB Urinalysis Automated 09/15/24 Z13.9 - Encounter for screening, unspecified CT abdomen pelvis wo IV con 09/15/24 N20.0 - Calculus of kidney Patient Instructions: The patient had an opportunity to ask questions regarding treatment plan. The patient expressed understanding and agreement with the above treatment plan. The patient is aware they should contact our office by phone for worsening of their current condition or the appearance of new symptoms. Compliance is encouraged with any medications and followup testing that is ordered. It is a privilege to be allowed the opportunity to participate in the urologic care of your patient. If you have any questions or concerns regarding treatment for the above conditions please do not hesitate to contact me. The office telephone contact is [phone]. This note is constructed in part using voice recognition software. While every effort has been made to ensure accuracy senior electronics engineer errors may have been included. Yours sincerely, Zenobia Bowie MD Coding Level of Care Code New Pt Level 3 (82004) Diagnoses Kidney stone on left side N20.0
== END 2024-09-15 16:10 | disposition home or self-care (01) ==
PROVIDERS: PCP Student in an Organized Health Care Education/Training Program; Visit Provider Urology
DX: N20.0 Calculus of kidney (principal)
CPT/HCPCS: 99203

== ENCOUNTER → 2024-09-15 14:34 | Outpatient (BNVA) | payer OTHER, SELFPAY | PROVIDERS: PCP Student in an Organized Health Care Education/Training Program; Visit Provider Urology | DX: N20.0 Calculus of kidney (principal) | CPT/HCPCS: 81003; 99202 ==

== ENCOUNTER 2024-10-01 12:48 | Outpatient (REF) | payer MEDICAID, SELFPAY ==
[2024-10-01 16:19] LABS: MANUAL DIFF FLAG NO
[2024-10-01 16:22] LABS: Basophils Percent Auto 0.9 % (0-2); Eosinophils Absolute Auto 0.2 X10*3/uL (0.0-0.4); Eosinophils Percent Auto 3.2 % (0-4); Hematocrit 40.2 % (37.0-47.0); Hemoglobin 12.9 g/dl (12.0-16.0); Imm Gran Abs Auto 0.02 X10*3/uL (0.00-0.03); Imm Gran Pct Auto 0.4 % (0.0-0.4); Lymphocytes Absolute Auto 1.3 X10*3/uL (1.2-4.9); Lymphocytes Percent Auto 26.8 % (20-40); Mean Corpuscular HGB Conc 32.1 g/dl (31.0-35.0); Mean Corpuscular Hemoglobin 29.1 pg (27.0-33.0); Mean Corpuscular Volume 90.7 fL (80.0-98.0); Mean Platelet Volume 10.6 fL (9.4-12.3); Monocytes Absolute Auto 0.5 X10*3/uL (0.1-1.2); Neutrophils Absolute Auto 2.8 x10*3/uL (2.0-8.3); Neutrophils Percent Auto 58.7 % (45-73); Platelet Count 312 X10*3/uL (160-400); Red Blood Count 4.43 X10*6/uL (4.20-5.50); Red Cell Distribution Width 13.7 % (11.0-16.0); White Blood Count 4.7 X10*3/uL (4.8-10.8)
[2024-10-01 16:32] LABS: Alanine Aminotransferase 15 U/L (0-31); Albumin Level 3.9 g/dL (3.5-5.0); Alkaline Phosphatase 99 U/L (39-117); Anion Gap 14 (12-20); Aspartate Amino Transferase 31 U/L (5-31); Bilirubin Total 0.3 mg/dL (0.0-1.0); Blood Urea Nitrogen 19 mg/dL (9-16); Calcium 9.6 mg/dL (8.4-10.2); Carbon Dioxide 28 mmol/L (22-29); Chloride 104 mmol/L (96-108); Estimated Glomerular Filt Rate > 60; Glucose Random 143 mg/dL (60-115); Potassium 4.2 mmol/L (3.3-5.1); Sodium 142 mmol/L (135-145); Total Protein 7.9 g/dL (6.5-8.0)
[2024-10-03 13:57] LABS: HIV RNA PCR Qn Copies NOT DETECTED copies/mL (NOT DETECTED); HIV RNA PCR Qn Log Copies NOT DETECTED (NOT DETECTED)
[2024-10-04 18:34] LABS: Absolute CD3 Count 998 cells/uL (840-3060); Absolute CD4 Count 203 cells/uL (490-1740); Absolute CD8 Count 737 cells/uL (180-1170); Absolute Lymphocytes 1368 cells/uL (850-3900); CD4 CD8 Ratio 0.28 (0.86-5.00); Percent CD3 Cells 73 % (57-85); Percent CD4 Cells 15 % (30-61); Percent CD8 Cells 54 % (12-42)
== END 2024-10-01 12:49 | disposition home or self-care (01) ==
LOC: HO.HHCL 12:48
PROVIDERS: Visit Provider Student in an Organized Health Care Education/Training Program
DX: Z21 Asymptomatic human immunodeficiency virus [HIV] infection status (principal)
CPT/HCPCS: 36415; 80053; 85025; 86359; 86360; 87536

== ENCOUNTER 2024-10-14 10:45 | Outpatient (REF) | payer MEDICAID, SELFPAY ==
--- NOTE | ~2024-10-14 | MM_ITS ---
EXAMINATION: BONE DENSITOMETRY CLINICAL INDICATION: Osteoporosis risk. COMPARISON: Baseline BD dated 03/08/2018. TECHNIQUE: Using a [employer] DXA System (software version: 13.1) manufactured by [employer], dual-energy x-ray absorptiometry was performed of the lumbar spine and left hip. The images are of good technical quality. Summary results are attached. FINDINGS: LEFT FEMUR, NECK: Current: BMD 0.625 g/cm2, Z-score -0.8, T-score -3.0, osteoporosis. Baseline: BMD 0.707 g/cm2. LEFT FEMUR, TOTAL: Current: BMD 0.627 g/cm2, Z-score -1.0, T-score -3.0, osteoporosis, 15.0% decrease from baseline (<5% change is not significant). Baseline: BMD 0.738 g/cm2. AP SPINE L1-L2 (excluding L3 and L4): The data of L1-L4 has been changed to exclude the L3 and L4 vertebral bodies, because significant degenerative change at these levels may cause overestimation of lumbar spine density. Current: BMD 0.844 g/cm2, Z-score -0.3, T-score -2.7, osteoporosis, 9.5% decrease from baseline (<5% change is not significant). Baseline: BMD 0.933 g/cm2. IDENTIFIED RISK FACTORS: Early menopause, secondary osteoporosis, low calcium intake. HISTORY OF FRACTURE: None listed. MEDICATIONS: Calcium, multivitamin. MM/XR DEXA axial skeleton IMPRESSION: 1. DIAGNOSIS: Osteoporosis based on the lowest T-score value of -3.0 in the femoral neck and total femur applying World Health Organization criteria. 2. 10-YEAR FRACTURE RISK PREDICTION, FRAX: According to the guidelines, FRAX calculation should only be performed on patients in the osteopenia bone density category. Therefore, FRAX was not performed on this patient. 3. Treatment Recommendations: NOF guidelines recommend consideration for treatment in postmenopausal women and men age 50 and older presenting with the following: -A hip or vertebral (clinical or morphometric) fracture. -T-score less than or equal to -2.5 at the femoral neck or spine after appropriate evaluation to exclude secondary causes. -Low bone mass at the hip or spine and a 10-year fracture probability by FRAX of greater than or equal to 3% for hip fracture or greater than or equal to 20% for major osteoporotic fracture based on the [place] adapted WHO algorithm. 4. Other Recommendations: All treatment decisions require clinical judgment and consideration of individual patient factors, including patient preferences, comorbidities, previous drug use, risk factors not captured in the FRAX model (e.g. frailty, falls, vitamin D deficiency, increased bone turnover, interval significant decline in bone density) and possible under or overestimation of fracture risk by FRAX. Additional medical evaluation for secondary cause of low bone mineral density may be appropriate. FUTURE SCAN RECOMMENDATION: People with diagnosed cases of osteoporosis or at high risk for fracture should have regular bone mineral density tests. For patients eligible for Medicare, routine testing is allowed once every 2 years. The testing frequency can be increased to one year for patients who have rapidly progressing disease, those who are receiving or discontinuing medical therapy to restore bone mass, or have additional risk factors. Electronically signed by: Lukasz Valdez MD 10/14/2024 05:56 PM [facility]
== END 2024-10-14 10:46 | disposition home or self-care (01) ==
LOC: HO.MAMMO 10:45
PROVIDERS: PCP Internal Medicine; Visit Provider Internal Medicine
DX: M81.0 Age-related osteoporosis without current pathological fracture (principal)
CPT/HCPCS: 77080

== ENCOUNTER 2024-10-20 10:42 | Emergency (ER) | payer OTHER, SELFPAY ==
--- NOTE | ~2024-10-20 | CT_ITS ---
EXAMINATION: CT HEAD WITHOUT CONTRAST CLINICAL INFORMATION: Headache ; 69-year-old female. COMPARISON: None available. TECHNIQUE: Contiguous axial imaging was performed from the skull base to vertex without intravenous administration of contrast. This CT examination was performed using dose optimization techniques as appropriate, variously including the following: *Automated exposure control *Adjustment of mA and/or kV according to patient size (this includes techniques or standardized protocols for targeted exams where dose is matched to indication/reason for exam; i.e. extremities or head) *Use of iterative reconstruction technique DLP: 541.9 mGy-cm FINDINGS: There is no evidence of intracranial hemorrhage or extra-axial fluid collection. There is no mass effect, or edema. No CT evidence of acute territorial infarct. Ventricles, sulci, and cisterns are somewhat diffusely prominent, in keeping with age-related cerebral and cerebellar involutional change.. No hydrocephalus. No midline shift. Moderate diffuse white matter hypoattenuation in the supratentorial periventricular regions, nonspecific but most likely representing small vessel ischemic changes. This is stable. 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 Partial empty sella present. Mild atheromatous calcification of the bilateral carotid siphons. 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 Left lens replacement. No extracranial soft tissue abnormalities. Complete opacification of the right maxillary sinus with thickened sinus [place] present, with partial opacification of the right ethmoid air cells anteriorly, and right sphenoid sinus. Patchy opacification level of the left frontal sinus. There is calcified soft tissue in the left middle meatus posteriorly, nonspecific. Mastoids and tympanic space is normally aerated. No suspicious bony abnormalities. No fracture seen. Degenerative TM joint changes right greater than left. CT/CT head/brain wo IV con IMPRESSION: 1. No acute intracranial abnormalities. 2. Chronic age-related findings of the brain. 3. Complete opacification right maxillary sinus, with findings of chronicity, and partial opacification of the right anterior ethmoid air cells, and right sphenoid sinus. 4. Right phthisis bulbi. Electronically signed by: Sriram Alexander MD 10/20/2024 01:33 PM [facility]
--- NOTE | ~2024-10-20 | CT_ITS ---
EXAMINATION: CT CERVICAL SPINE WITHOUT CONTRAST CLINICAL INFORMATION: Right neck pain. COMPARISON: None. TECHNIQUE: Spiral CT of the cervical spine obtained in axial plane without contrast. Sagittal, coronal, and thin section axial reformatted images were constructed from the axial data set. This CT examination was performed using dose optimization techniques as appropriate, variously including the following: *Automated exposure control *Adjustment of mA and/or kV according to patient size (this includes techniques or standardized protocols for targeted exams where dose is matched to indication/reason for exam; i.e. extremities or head) *Use of iterative reconstruction technique DLP: 227.46 mGy-cm FINDINGS: There is a mild levoconvex scoliosis, apex at C4. There is a minimally straightened lordosis. There is no fracture, compression deformity, traumatic subluxation, or suspicious focal bony abnormality. Moderate disc space narrowing noted C5-6 and C6-7. Facets are normally aligned. There are mild degenerative facet changes present left greater than right, and uncinate spurring present most prominent at C5-6 and C6-7. There is no evidence of central canal narrowing or cord impingement. The craniocervical junction and C1-2 articulation are intact and normally aligned. There is no prevertebral soft tissue abnormality. Normal thyroid. Imaged lung apices demonstrate no several nodular opacities in the apices bilaterally, largest in the left apex measuring 5 mm along with mild interlobular septal thickening suggesting mild CHF. CT/CT cervical spine wo IV con IMPRESSION: 1. No CT evidence of acute cervical spine injury or fracture. 2. Mild levoconvex scoliosis and moderate degenerative spondylosis most significant C5-6 and C6-7. 3. Several nodules in the lung apices, largest in the right apex measuring 5 mm. These are nonspecific and according to Fleischner guidelines, one-year follow-up recommended in a high-risk patient. Electronically signed by: Sriram Alexander MD 10/20/2024 01:53 PM [facility]
[2024-10-20 10:55] VITALS: BP 118/78; BP 169/101; PULSE 68; PULSE 70; RESP 18; TEMP 36.5; O2SAT 100; O2SAT 99; BMI 17.7
--- NOTE | 2024-10-20 11:15 | ECG_ITS ---
Test Reason : ARM PAIN Blood Pressure : / mmHG Vent. Rate : 062 BPM Atrial Rate : 062 BPM P-R Int : 112 ms QRS Dur : 100 ms QT Int : 424 ms P-R-T Axes : 050 -25 029 degrees QTc Int : 430 ms Normal sinus rhythm Incomplete right bundle branch block Borderline ECG No previous ECGs available Referred By: Gian Power Electronically Signed By:DAI CASE
--- NOTE | 2024-10-20 11:18 | ED.HA ---
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 Denies any known trauma. She came in today as PROVIDER RELATIONS COORDINATOR checked her BP and she was told it was high . She has no CP/SOB. She is smiling and laughing in the room. BP on arrival was 120/70s. She notes she still has the R lateral neck pain with BP normal. MD elicited complaint: headache (neck pain) Onset (ago): day(s) (2) Onset description: gradually Location: right and neck Severity: mild Quality & Timing: aching and dull Exacerbating factors: movement of head/neck and other (touching) Relieving factors: nothing Associated symptoms: none Treatments prior to arrival: none Related Data Home Medications ?Medication ?Instructions ?Recorded ?Confirmed acetaminophen 500 mg tablet 2 tab PO Q6H PRN pain 04/14/22 04/14/22 alendronate 70 mg tablet 1 tab PO QWEEK 04/14/22 04/14/22 bictegravir 50 mg-emtricitabine 1 tab PO DAILY 04/14/22 04/14/22 200 mg-tenofovir alafenam 25 mg tablet (Biktarvy) calcium 315 mg (as 1 tab PO BID 04/14/22 04/14/22 citrate)-vitamin D3 6.25 mcg (250 unit) tablet fluticasone propionate 50 1 spray intranasal BID 04/14/22 04/14/22 mcg/actuation nasal spray,suspension loratadine 10 mg tablet 1 tab PO DAILY 04/14/22 04/14/22 Previous Rx's ?Medication ?Instructions ?Recorded cephalexin 500 mg capsule 500 mg PO QID 7 days #28 caps 06/17/21 doxycycline hyclate 100 mg tablet 100 mg PO BID #14 tabs 06/24/21 bisacodyl 5 mg tablet,delayed 10 mg (2 x 5 mg) PO ONCE 1 day #2 10/26/21 release (Dulcolax (bisacodyl)) tabs polyethylene glycol 3350 17 238 g PO ONCE #238 grams 10/26/21 gram/dose oral powder (Miralax) pyridoxine (vitamin B6) 100 mg 100 mg PO DAILY for kidney stones 09/19/24 tablet #90 tabs amoxicillin 875 mg-potassium 1 tab PO BID #14 tabs 10/20/24 clavulanate 125 mg tablet Allergies Allergy/AdvReac Type Severity Reaction Status Date / Time No Known Allergies Allergy Verified 10/20/24 10:58 Review of Systems Review of Systems: Constitutional : No Fever, No Chills, No Fatigue ENT/Mouth : No sore throat, No Rhinorrhea Eyes: No Eye Pain, No Swelling, No Redness Cardiovascular : No Chest Pain, No SOB, No Dyspnea on Exertion Respiratory : No Cough, No Sputum Gastrointestinal : No Nausea, No Vomiting, No Diarrhea, No abdominal Pain Genitourinary : No Dysuria, No Urinary Frequency, No Hematuria, Musculoskeletal : No joint pain, No Myalgias, No Joint Swelling, pos neck Skin : No Skin Lesions, No rash Neuro : No Weakness, No Numbness, No Dizziness, positive Headache Psych : No Anxiety/Panic, No Depression All other systems reviewed and are negative [facility] Past Medical History Attestation statement: The following information was validated with the patient. Source: old records reviewed Medical History Osteoporosis Chronic venous insufficiency of lower extremity HIV (human immunodeficiency virus infection) Glaucoma Surgical History H/O colonoscopy Social History Social History Patient Tobacco Use Status: Never used Tobacco Smoked in Last 30 Days: No Use of substances other than those prescribed or required for medical reasons: No Advance Directives: No Advance Directives Information Provided: Yes Do you have a plan to hurt others: No Plan Physical Exam Vital Signs: Vital Signs: Last Vital Signs Temp 97.7 F 10/20/24 10:55 Pulse 68 10/20/24 10:55 Resp 18 10/20/24 10:55 BP 118/78 10/20/24 10:55 Pulse Ox 100 10/20/24 10:55 O2 Del Method Room Air 10/20/24 10:55 BMI result Body Mass Index 17.7 Appearance: Alert. Oriented X3. No acute distress. Eyes: Pupils equal, round and reactive to light. ENT: Pharynx normal. atraumatic. R side of neck hurts to touch the SCM area but no redness, ropy cord, patient has pain with movement of neck as well Neck: Normal inspection. Neck supple. CVS: Normal heart rate and rhythm. Pulses normal. Respiratory: No respiratory distress. Breath sounds normal. Abdomen: Soft and nontender. Skin: Skin warm and dry. Normal skin color. Normal skin turgor. Extremities: No lower extremity edema. No calf ttp Neuro: Oriented X 3. No motor deficit. No sensory deficit. Medications Administered Discontinued Medications Generic Name Dose Route Start Last Admin Trade Name Freq PRN Reason Stop Dose Admin Acetaminophen 1,000 mg in 100 mls @ 400 mls/hr 10/20/24 11:11 10/20/24 12:32 Ofirmev IV 10/20/24 11:25 Infused ONCE ONE Infusion Medical Decision Making Medical Decision Making [facility] Narrative: 69 yo female with PMH of glaucoma and R eye blindess, cellulitis, osteoporosis, HIV on antivirals, GERD, depression, depression here with c/o headache and R sided neck pain no fevers, n/v, chest pain, dyspnea. She has no signs of focal weakness. She is not toxic, pain reproduceable. Given localized to one area that has no obvious infection and her BP is stable - ICH seems unlikely she has no systemic symptoms or meningeal signs to suggest infection. I have ordered labs, CT scans for arthritis/mass, IV tylenol for pain. Dissection seems unlikely Differential Diagnosis Differential Diagnoses: The differential diagnosis associated with the presentation includes neck strain, arthritis, viral syndrome Admission/Observation Consideration of admission/observation: Escalation of care including admission/observation considered Lab Data [facility] Lab Attestation statement: I reviewed the patient's lab results. 10/20/24 11:25 10/20/24 11:25 Labs: Lab Results 10/20/24 Range/Units 11:25 WBC 3.8 L (4.8-10.8) X10*3/uL RBC 4.29 (4.20-5.50) X10*6/uL Hgb 12.6 (12.0-16.0) g/dl Hct 38.1 (37.0-47.0) % MCV 88.8 (80.0-98.0) fL MCH 29.4 (27.0-33.0) pg MCHC 33.1 (31.0-35.0) g/dl RDW 13.4 (11.0-16.0) % Plt Count 268 (160-400) X10*3/uL MPV 9.4 (9.4-12.3) fL Immature Gran % (Auto) 0.3 (0.0-0.4) % Neut % (Auto) 57.1 (45-73) % Lymph % (Auto) 28.2 (20-40) % [place] % (Auto) 11.7 H (2-11) % Eos % (Auto) 1.6 (0-4) % Baso % (Auto) 1.1 (0-2) % Lymph # (Auto) 1.1 L (1.2-4.9) X10*3/uL [place] # (Auto) 0.4 (0.1-1.2) X10*3/uL Eos # (Auto) 0.1 (0.0-0.4) X10*3/uL Baso # (Auto) 0.0 (0.0-0.2) X10*3/uL Abs Immat Gran (auto) 0.01 (0.00-0.03) X10*3/uL Absolute Neuts (auto) 2.2 (2.0-8.3) x10*3/uL Absolute Nucleated RBC 0.000 (0.0-0.012) X10*3/uL Nucleated RBC % (auto) 0.0 (0.0-0.2) /100WBC PT 11.9 (10.9-12.4) SEC INR 1.0 (0.9-1.1) Sodium 142 (135-145) mmol/L Potassium 3.8 (3.3-5.1) mmol/L Chloride 107 (96-108) mmol/L Carbon Dioxide 29 (22-29) mmol/L Anion Gap 10 L (12-20) BUN 13 (9-16) mg/dL Creatinine 0.75 (0.5-1.4) mg/dL Estim Creat Clear Calc 49.2 Estimated GFR > 60 Random Glucose 89 (60-115) mg/dL Calcium 9.3 (8.4-10.2) mg/dL Magnesium 1.8 (1.6-2.6) mg/dL Total Bilirubin 0.3 (0.0-1.0) mg/dL Direct Bilirubin 0.1 (0.0-0.5) mg/dL AST 26 (5-31) U/L ALT 10 (0-31) U/L Alkaline Phosphatase 87 (39-117) U/L Troponin I High Sens < 2.7 (<3.5-17.0) ng/L Total Protein 7.6 (6.5-8.0) g/dL Albumin 3.7 (3.5-5.0) g/dL Lipase 19 (8-78) U/L Independent Interpretation I performed an independent interpretation of an: EKG and CT Scan Interpretation: Rate: 62 Rhythm: NSR [place]: left Normal P waves. Normal AIDAN. incomplete RBBB ST T wave : normal no CHAP[place]O qTC: 430 prior studies: no prior The study has been interpreted contemporaneously by me. . Radiology Impression Discussion of test interpretation with radiology: I have reviewed the radiologist's reading. External Record Review External record reviewed: Outpatient record Discharge Plan Discharge Clinical Impression: Sinusitis, Headache, Acute neck pain Patient Disposition: Home, Self-Care Instructions: Rhinosinusitis (ED), Acute Headache (ED), Acute Neck Pain (ED) Additional Instructions: has been normal in ED 120s/80s your CT scans showed arthritis in the neck and sinus infection - likely cause of your symptoms EKG reassuring will start on antibiotic for sinus disease return for any worsening symptoms or concerns or numbness, weakness, confusion small lung nodules seen in both upper lungs repeat CT scan with doctor in 6 months to 1 year On amoxicillin-clavulanate, softer bowel movements are to be expected. Call your provider if you move your bowels more than 4 times a day, your bowel movements are almost all liquid, or you get a rash.? Prescriptions: New amoxicillin-pot clavulanate 875-125 mg tablet 1 tab PO BID Qty: 14 0RF No Action pyridoxine (vitamin B6) 100 mg tablet 100 mg PO DAILY Qty: 90 3RF doxycycline hyclate 100 mg tablet 100 mg PO BID Qty: 14 0RF cephalexin 500 mg capsule 500 mg PO QID 7 Days Qty: 28 0RF alendronate 70 mg tablet 1 tab PO QWEEK acetaminophen 500 mg tablet 2 tab PO Q6H PRN (Reason: pain) fluticasone propionate 50 mcg/actuation spray,suspension 1 spray intranasal BID loratadine 10 mg tablet 1 tab PO DAILY calcium citrate-vitamin D3 315 mg-6.25 mcg (250 unit) tablet 1 tab PO BID Biktarvy 50-200-25 mg tablet 1 tab PO DAILY bisacodyl [Dulcolax (bisacodyl)] 5 mg tablet,delayed release (DR/EC) 10 mg PO ONCE 1 Days Qty: 2 0RF Rx Instructions: take 2 tabs at noon the day before your colonoscopy polyethylene glycol 3350 [Miralax] 17 gram/dose powder 238 g PO ONCE Qty: 238 0RF Rx Instructions: As directed by gastroenterology department at [facility] Print Language: Frisian
[2024-10-20 11:31] LABS: MANUAL DIFF FLAG NO
[2024-10-20] MEDS: Acetaminophen 1,000 MG/100 ML PIGGYBACK 400 MG IV (11:32)
[2024-10-20 11:33] LABS: Basophils Percent Auto 1.1 % (0-2); Eosinophils Absolute Auto 0.1 X10*3/uL (0.0-0.4); Eosinophils Percent Auto 1.6 % (0-4); Hematocrit 38.1 % (37.0-47.0); Hemoglobin 12.6 g/dl (12.0-16.0); Imm Gran Abs Auto 0.01 X10*3/uL (0.00-0.03); Imm Gran Pct Auto 0.3 % (0.0-0.4); Lymphocytes Absolute Auto 1.1 X10*3/uL (1.2-4.9); Lymphocytes Percent Auto 28.2 % (20-40); Mean Corpuscular HGB Conc 33.1 g/dl (31.0-35.0); Mean Corpuscular Hemoglobin 29.4 pg (27.0-33.0); Mean Corpuscular Volume 88.8 fL (80.0-98.0); Mean Platelet Volume 9.4 fL (9.4-12.3); Monocytes Absolute Auto 0.4 X10*3/uL (0.1-1.2); Monocytes Percent Auto 11.7 % (2-11); Neutrophils Absolute Auto 2.2 x10*3/uL (2.0-8.3); Neutrophils Percent Auto 57.1 % (45-73); Platelet Count 268 X10*3/uL (160-400); Red Blood Count 4.29 X10*6/uL (4.20-5.50); Red Cell Distribution Width 13.4 % (11.0-16.0); White Blood Count 3.8 X10*3/uL (4.8-10.8)
[2024-10-20 11:42] LABS: Prothrombin Time 11.9 SEC (10.9-12.4)
[2024-10-20 11:49] LABS: Albumin Level 3.7 g/dL (3.5-5.0); Anion Gap 10 (12-20); Aspartate Amino Transferase 26 U/L (5-31); Bilirubin Direct 0.1 mg/dL (0.0-0.5); Bilirubin Total 0.3 mg/dL (0.0-1.0); Blood Urea Nitrogen 13 mg/dL (9-16); Calcium 9.3 mg/dL (8.4-10.2); Carbon Dioxide 29 mmol/L (22-29); Chloride 107 mmol/L (96-108); Creatinine Clr Calc Pharmacy 49.2; Estimated Glomerular Filt Rate > 60; Glucose Random 89 mg/dL (60-115); Lipase 19 U/L (8-78); Magnesium 1.8 mg/dL (1.6-2.6); Potassium 3.8 mmol/L (3.3-5.1); Sodium 142 mmol/L (135-145); Total Protein 7.6 g/dL (6.5-8.0)
[2024-10-20 11:57] LABS: Troponin-I High Sensitivity < 2.7 ng/L (<3.5-17.0)
[2024-10-20 12:04] LABS: Alanine Aminotransferase 10 U/L (0-31); Alkaline Phosphatase 87 U/L (39-117)
[2024-10-20 14:18] VITALS: BP 115/72; PULSE 67; RESP 16; TEMP 36.5; O2SAT 98
--- NOTE | 2024-10-20 14:25 | PC.NURSE ---
pt awaiting her ride to pick her up
== END 2024-10-20 16:02 | disposition home or self-care (01) ==
PROVIDERS: Emergency Provider Emergency Medicine
DX: J32.9 Chronic sinusitis, unspecified (principal); R51.9 Headache, unspecified; M54.2 Cervicalgia; I45.10 Unspecified right bundle-branch block; I10 Essential (primary) hypertension; R94.31 Abnormal electrocardiogram [ECG] [EKG]; Z79.899 Other long term (current) drug therapy; Z51.81 Encounter for therapeutic drug level monitoring
CPT/HCPCS: 36415; 70450; 72125; 80048; 80076; 83690; 83735; 84484; 85025; 85610; 93005; 99284; 99285; J0131

== ENCOUNTER → 2024-10-20 11:11 | Outpatient (BNV) | payer MEDICAID, SELFPAY | PROVIDERS: Emergency Provider Emergency Medicine; Visit Provider Radiology Diagnostic Radiology | DX: M50.320 Other cervical disc degeneration, mid-cervical region, unspecified level (principal); R91.1 Solitary pulmonary nodule; H44.521 Atrophy of globe, right eye; J01.01 Acute recurrent maxillary sinusitis; J32.3 Chronic sphenoidal sinusitis | CPT/HCPCS: 70450; 72125 ==

== ENCOUNTER → 2024-10-20 11:15 | Outpatient (BNV) | payer MEDICAID, SELFPAY | PROVIDERS: Emergency Provider Emergency Medicine; Visit Provider Internal Medicine | DX: I45.19 Other right bundle-branch block (principal); I10 Essential (primary) hypertension | CPT/HCPCS: 93010 ==

== ENCOUNTER 2024-10-27 13:06 | Outpatient (AMB) | payer MEDICAID, SELFPAY ==
[2024-10-27 13:15] VITALS: BMI 17.1
--- NOTE | 2024-10-27 13:15 | A.OFFVIS_ITS ---
Vital Signs 10/27/24 13:15 Height 5 ft 3 in Weight 96 lb 6 oz BMI 17.1 Intake Visit Reasons: Abnormal anal pap, HIV/HPV infection Intake Note: This patient presents for abnormal anal pap, HPV/HIV infection. Pt c/o; reports no complaints. Construction Site Crossing Guard Required: Yes Construction Site Crossing Guard Language: Technical Customer Support Specialist Services: Construction Site Crossing Guard Present Construction Site Crossing Guard Name: [place] Information Interpreted: non-clinical & clinical Accompanied by: Family/Other Allergies No Known Allergies Allergy (Verified 10/27/24 13:22) Medication List - Last Reconciled 10/27/24 by Christiano Davis MD acetaminophen 2 tabs PO Q6H PRN alendronate 1 tab PO QWEEK amoxicillin-pot clavulanate 875-125 mg 1 tab PO BID jkcqeheay-ijfzrall-tumemri ala 50-200-25 mg (Biktarvy) 1 tab PO DAILY bisacodyl (Dulcolax (bisacodyl)) 10 mg (2 x 5 mg) PO ONCE 1 day calcium citrate-vitamin D3 315 mg-6.25 mcg (250 unit) 1 tab PO BID cephalexin 500 mg PO QID 7 days doxycycline hyclate 100 mg PO BID fluticasone propionate 50 mcg/actuation 1 spray intranasal BID loratadine 1 tab PO DAILY polyethylene glycol 3350 (Miralax) 238 grams PO ONCE pyridoxine (vitamin B6) 100 mg PO DAILY HPI HPI Abnormal anal pap, HIV/HPV infection: Details: 69-year-old female referred because of abnormal Pap smear. She had an anal Pap last August, because of her history of HIV. This showed atypical squamous cells of uncertain significance. She denies any bleeding or any anal complaints She is severely visually impaired since childhood. She denies any problems with bowel movements. She has never had any HIV related diseases. [facility] Medical History (Updated 10/27/24 @ 13:54 by Christiano Davis MD) Pap smear of anus with ASCUS Osteoporosis Chronic venous insufficiency of lower extremity HIV (human immunodeficiency virus infection) Glaucoma Surgical History H/O colonoscopy Social History Patient Tobacco Use Status: Never used Tobacco Review of Systems Const Denies chills and Denies fever(s) Eyes Details: Severely visually impaired Card Denies chest pain, Denies dyspnea and Denies dyspnea on exertion Resp Denies cough, Denies dyspnea and Denies dyspnea on exertion GI Denies hematochezia and Denies change in bowel habits Denies hematuria Musc Denies back pain and Denies limited range of motion Neuro Denies focal weakness and Denies convulsions Psych Denies depression and Denies mood swings Physical Exam Vital Signs: BMI result Body Mass Index 17.1 Const General: comfortable and no acute distress Orientation/consciousness: patient oriented x3 Neck Neck: Yes no lymphadenopathy Resp Auscultation: clear to auscultation bilaterally Cardio Rhythm: regular rhythm GI Other: Rectal exam shows small external hemorrhoids, no perianal lesions Palpation (GI): Soft to palpation, nontender and no guarding Neuro General: patient oriented x3 Office Procedures Anoscopy She was in óscar-knife position. The anoscope was gently inserted. A full examination of the anal canal was done. She did have internal external hemorrhoids. These were non bulky. She did not have any bleeding. There were no lesions. There was no ulceration or fissure. There was no induration on digital exam. There was no suggestion of any anal lesion. [id number] Assessment & Plan Assessment & Plan (1) Pap smear of anus with ASCUS: Code(s): R85.610 - Atypical squamous cells of undetermined significance on cytologic smear of anus (ASC-US) Category: Medical Plan: Current exam does not reveal any anal lesions. There is no suggestion of any high-grade lesions in the anal canal I told her that I will repeat the anoscopy in about 6 months. She will therefore see me around that time again. Her family was with her during the visit. Coding Level of Care Code New Pt Level 3 (96688) Diagnoses Pap smear of anus with ASCUS R85.610 CPT Codes Details - CPT: 94107-[id number] ([id number])
== END 2024-10-27 14:04 | disposition home or self-care (01) ==
PROVIDERS: PCP Internal Medicine; Visit Provider Surgery
DX: R85.610 Atypical squamous cells of undetermined significance on cytologic smear of anus (ASC-US) (principal)
CPT/HCPCS: 46600; 99203

== ENCOUNTER → 2024-10-27 13:06 | Outpatient (BNVA) | payer MEDICAID, SELFPAY | PROVIDERS: PCP Internal Medicine; Visit Provider Surgery | DX: R85.610 Atypical squamous cells of undetermined significance on cytologic smear of anus (ASC-US) (principal) | CPT/HCPCS: 46600; 99202 ==

== ENCOUNTER 2024-11-20 14:06 | Outpatient (REF) | payer OTHER, SELFPAY ==
--- NOTE | ~2024-11-20 | CT_ITS ---
CLINICAL HISTORY: N20.0 - Calculus of kidney CT abdomen and pelvis without contrast Comparison: None Findings: There is right middle lobe scarring.. Solid organs are within normal limits. There are no abnormal findings in the gallbladder fossa. There are bilateral renal parenchymal calculi. No bowel obstruction, pneumoperitoneum, or pneumatosis. Pelvic contents unremarkable. Normal appendix. No acute fracture. IMPRESSION: No acute findings. This document has been electronically signed by: Margarito Ferro MD on 11/21/2024 07:47:01
== END 2024-11-20 14:07 | disposition home or self-care (01) ==
LOC: HO.CT 14:06
PROVIDERS: PCP Internal Medicine; Visit Provider Urology
DX: N20.0 Calculus of kidney (principal)
CPT/HCPCS: 74176

== ENCOUNTER → 2024-11-20 14:07 | Outpatient (BNV) | payer OTHER, SELFPAY | PROVIDERS: PCP Internal Medicine; Visit Provider Specialist | DX: N20.0 Calculus of kidney (principal) | CPT/HCPCS: 74176 ==

== ENCOUNTER → 2024-12-05 15:57 | Outpatient (BNVA) | payer OTHER, SELFPAY | PROVIDERS: PCP Internal Medicine; Visit Provider Urology ==

== ENCOUNTER → 2024-12-08 08:49 | Outpatient (BNVA) | payer OTHER, SELFPAY | PROVIDERS: PCP Internal Medicine; Visit Provider Urology ==

== ENCOUNTER 2024-12-22 12:18 | Emergency (ER) | payer OTHER, SELFPAY ==
--- NOTE | ~2024-12-22 | XR_ITS ---
CLINICAL HISTORY: headache Chest Radiograph Comparison: None Findings: No cardiomegaly. Normal mediastinal contours. No pneumothorax. No opacity. No pleural effusion. Normal upper abdomen. No acute fracture. Impression: No acute findings. This document has been electronically signed by: Maria Del Carmen Joshi MD on 12/22/2024 14:20:51
--- NOTE | ~2024-12-22 | CT_ITS ---
CLINICAL HISTORY: sudden headache, r o cerebral aneurysm CTA of the head and neck with 3-D postprocessing Comparison: CT/SR - CT HEAD/BRAIN WO IV CON - 12/22/24 14:[address]/SC/SR - CT HEAD/BRAIN WO IV CON - 10/20/24 11:39 EST Findings: No significant carotid artery stenosis. Intact vertebral arteries. The vertebral basilar system is patent. The cerebellar and posterior cerebral arteries are intact. The intracranial internal carotid arteries are patent. The middle/anterior cerebral arteries are intact. No aneurysm, abrupt cutoffs or significant stenosis. No mass, midline shift, hydrocephalus, acute hemorrhage or abnormal contrast enhancement. Biapical scarring with nodularity; nodularity measures up to 1.0 cm on the left. Calcification in the left nasal cavity, unchanged. The soft tissues of the head and neck are unremarkable. Impression: No aneurysm, abrupt cutoffs or significant stenosis. This document has been electronically signed by: Maria Del Carmen Joshi MD on 12/22/2024 16:22:19
--- NOTE | ~2024-12-22 | CT_ITS ---
CLINICAL HISTORY: headache CT head without contrast Comparison: 10/20/24 Findings: No acute hemorrhage. No extra-axial fluid collection. No hydrocephalus, mass-effect or herniation. Sun-white differentiation is maintained. There is patchy hypoattenuation of the periventricular and deep white matter, which is most likely the sequela of moderate chronic small vessel ischemic disease and is similar to the prior study. No acute orbital pathology. Right phthisis bulbi. No acute soft tissue abnormality. No fracture. Opacification of the right maxillary sinus may indicate sinusitis with osseous thickening which could be due to chronicity, also present on the prior study. Mild mucosal thickening in the other paranasal sinuses which may indicate sinusitis. The mastoid air cells are clear. Impression: No acute intracranial findings. This document has been electronically signed by: Maria Del Carmen Joshi MD on 12/22/2024 15:45:24
[2024-12-22 12:20] VITALS: BP 152/98; PULSE 67; O2SAT 97
[2024-12-22 12:43] VITALS: BP 130/72; PULSE 76; RESP 26; TEMP 36.4; O2SAT 98
[2024-12-22 12:45] VITALS: BMI 18.4
--- NOTE | 2024-12-22 13:36 | ECG_ITS ---
Test Reason : HEADACHE Blood Pressure : */* mmHG Vent. Rate : 68 BPM Atrial Rate : 68 BPM P-R Int : 108 ms QRS Dur : 94 ms QT Int : 396 ms P-R-T Axes : 74 -38 42 degrees QTcB Int : 421 ms Sinus rhythm with short OK Left axis deviation Incomplete right bundle branch block Minimal voltage criteria for LVH, may be normal variant ( Pj product ) Possible Anterior infarct , age undetermined Abnormal ECG When compared with ECG of 20-Oct-2024 12:09, No significant change was found Referred By: Rubina Wooten Electronically Signed By: DAI CASE
--- NOTE | 2024-12-22 13:37 | ED.HA ---
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 Wooten HPI Narrative: This is a 69-year-old female came in to the emergency department for evaluation of occipital headache since yesterday headache was felt on the occipital area, otherwise no blurry vision, no speech abnormality, no neck stiffness patient tried Tylenol at home that relieved her headache for few hours, patient describes the headache as intermittent headache currently patient's headache was described as light 1/10. No sick contacts, no runny nose, no nasal congestion, no shortness of breath, no fever, no chills. Related Data Home Medications ?Medication ?Instructions ?Recorded ?Confirmed acetaminophen 500 mg tablet 2 tab PO Q6H PRN pain 04/14/22 12/08/24 alendronate 70 mg tablet 1 tab PO QWEEK 04/14/22 12/08/24 bictegravir 50 mg-emtricitabine 1 tab PO DAILY 04/14/22 12/08/24 200 mg-tenofovir alafenam 25 mg tablet (Biktarvy) calcium 315 mg (as 1 tab PO BID 04/14/22 12/08/24 citrate)-vitamin D3 6.25 mcg (250 unit) tablet fluticasone propionate 50 1 spray intranasal BID 04/14/22 12/08/24 mcg/actuation nasal spray,suspension loratadine 10 mg tablet 1 tab PO DAILY 04/14/22 12/08/24 Previous Rx's ?Medication ?Instructions ?Recorded bisacodyl 5 mg tablet,delayed 10 mg (2 x 5 mg) PO ONCE 1 day #2 10/26/21 release (Dulcolax (bisacodyl)) tabs polyethylene glycol 3350 17 238 g PO ONCE #238 grams 10/26/21 gram/dose oral powder (Miralax) pyridoxine (vitamin B6) 100 mg 100 mg PO DAILY for kidney stones 09/19/24 tablet #90 tabs amoxicillin 500 mg-potassium 1 tab PO BID #14 tabs 12/22/24 clavulanate 125 mg tablet (Augmentin) Allergies Allergy/AdvReac Type Severity Reaction Status Date / Time No Known Allergies Allergy Verified 12/22/24 12:47 Review of Systems Review of Systems: All other systems are reviewed and are negative Constitutional: Reports as per HPI and Reports no additional constitutional complaints Eyes: Reports as per HPI and Reports no additional eye complaints Reports system reviewed and no additional complaints, except as documented Cardiovascular: Reports as per HPI and Reports no additional cardiovascular complaints Respiratory: Reports as per HPI and Reports no additional respiratory complaints Gastrointestinal: Reports as per HPI and Reports no additional gastrointestinal complaints Genitourinary: Reports no additional female genitourinary complaints Musculoskeletal: Reports no additional musculoskeletal complaints Skin/Breast: Reports system reviewed and no additional complaints, except as docu Psychiatric: Reports no additional psychiatric complaints Endocrine: Reports no additional endocrine complaints Hematologic/Lymphatic: Reports no additional hematologic/lymphatic complaints Allergic/Immunologic: Reports no additional allergic/immunologic complaints Reports system reviewed and no additional complaints, except as documented and Reports Abnormal speech present [facility] Past Medical History Medical History Pap smear of anus with ASCUS Osteoporosis Chronic venous insufficiency of lower extremity HIV (human immunodeficiency virus infection) Glaucoma Surgical History H/O colonoscopy Social History Social History Patient Tobacco Use Status: Never used Tobacco Smoked in Last 30 Days: No Use of substances other than those prescribed or required for medical reasons: No Advance Directives: No Advance Directives Information Provided: Yes Physical Exam Vital Signs: Vital Signs: Last Vital Signs Temp 98.1 F 12/22/24 17:03 Pulse 71 12/22/24 17:03 Resp 14 12/22/24 17:03 BP 145/89 H 12/22/24 17:03 Pulse Ox 99 12/22/24 17:03 O2 Del Method Room Air 12/22/24 17:03 BMI result Body Mass Index 18.4 Vital signs have been reviewed and appear to be correct. Blood pressure elevated. Heart rate normal. Respiratory rate normal. Temperature normal. Oxygen saturation normal. Appearance: Alert. Oriented X3. No acute distress. Head: Normal external exam. Normocephalic. Atraumatic. No Verma signs noted. No raccoon eyes noted Eyes: PERRLA. EOMI. Conjunctiva and sclera normal. Eyelids normal. ENT: TM's Normal. Pharynx normal. Uvula midline. Moist mucous membranes. No trismus noted. No drooling noted. No muffled voice noted. Left frontal sinus tenderness to percussion. Neck: Normal inspection. Neck supple. FROM. No adenopathy. Thyroid Normal. No meningeal signs. No neck mass noted. CVS: Normal heart rate and rhythm. Heart sound normal. No murmurs noted. Pulses normal throughout. Respiratory: No respiratory distress. Painless inspiration. Breath sounds normal. No wheezes/rales/rhonchi noted. Chest nontender. No accessory muscle usage noted or decreased air movement noted. Abdomen: Soft and nontender. Bowel sounds normal in all 4 quadrants. No distention noted. No organomegaly noted. No visible injury noted. Back: No CVA tenderness. Full range of motion noted. Skin: Skin warm and dry. Normal skin color. Normal skin turgor. No rashes/lesions/lacerations noted. Extremities: No lower extremity edema. Extremities exhibit normal range of motion. Extremities nontender. Neuro: Mental status: Normal attention, orientation, memory, and affect. Cranial nerves: Pupils are equal, round and reactive to light, EOMI, visual toussaint are fall, face is symmetric, facial sensations are normal. Motor examination normal muscle tone, strength to 4 extremities. DTR are +2, planter's are flexor. Sensory exam; normal coordination, no ataxia, gait stable. Cerebellar exam: Evmyhz-no-ghnn and peby-lr-bfco is normal. Extrapyramidal system: No tremors, no rigidity with normal facial expressions. Pronator drift not present Course Reevaluation(s) Reevaluation #1: Feels better. Neuro exam is unremarkable, GCS of 15, head CT/CT angio is unremarkable for intracranial aneurysm, and physical exam is consistent with tenderness over the left frontal sinus will treat sinusitis and start on Augmentin. Blood pressure issues in the ED. family at the bedside will take the patient home. Time: 18:00 Medications Administered Discontinued Medications Generic Name Dose Route Start Last Admin Trade Name Freq PRN Reason Stop Dose Admin Amoxicillin/Clavulanate Potassium 875 mg 12/22/24 13:35 12/22/24 14:10 Amoxicillin/Potassium Clav 875 Mg Tablet PO 12/22/24 13:36 875 mg ONCE ONE Administration Sodium Chloride 1,000 mls @ 999 mls/hr 12/22/24 13:35 12/22/24 15:58 Ns IV 12/22/24 14:35 Infused .Q1H1M ONE Infusion Iohexol 100 ml 12/22/24 15:30 12/22/24 15:34 Iohexol 350 Mg/Ml 100 Ml Infus..Btl IV 12/22/24 15:31 70 ml ONCE ONE Administration Ketorolac Tromethamine 10 mg 12/22/24 13:35 12/22/24 14:10 Ketorolac Tromethamine 10 Mg Tablet PO 12/22/24 13:36 10 mg ONCE ONE Administration Medical Decision Making Differential Diagnosis Differential Diagnoses: The differential diagnosis associated with the presentation includes (Intracranial bleed, hypertensive urgency, hypertensive emergency, sinusitis, viral infection, electrolyte derangement, severe anemia.) Admission/Observation Consideration of admission/observation: Escalation of care including admission/observation considered Lab Data MDM Lab Attestation statement: I reviewed the patient's lab results. 12/22/24 14:03 12/22/24 14:03 Labs: Lab Results 12/22/24 12/22/24 12/22/24 Range/Units 12:59 14:00 14:03 WBC 5.3 (4.8-10.8) X10*3/uL RBC 4.65 (4.20-5.50) X10*6/uL Hgb 13.7 (12.0-16.0) g/dl Hct 42.0 (37.0-47.0) % MCV 90.3 (80.0-98.0) fL MCH 29.5 (27.0-33.0) pg MCHC 32.6 (31.0-35.0) g/dl RDW 13.5 (11.0-16.0) % Plt Count 308 (160-400) X10*3/uL MPV 9.9 (9.4-12.3) fL Immature Gran % (Auto) 0.4 (0.0-0.4) % Neut % (Auto) 71.4 (45-73) % Lymph % (Auto) 16.3 L (20-40) % [place] % (Auto) 10.6 (2-11) % Eos % (Auto) 0.9 (0-4) % Baso % (Auto) 0.4 (0-2) % Lymph # (Auto) 0.9 L (1.2-4.9) X10*3/uL [place] # (Auto) 0.6 (0.1-1.2) X10*3/uL Eos # (Auto) 0.1 (0.0-0.4) X10*3/uL Baso # (Auto) 0.0 (0.0-0.2) X10*3/uL Abs Immat Gran (auto) 0.02 (0.00-0.03) X10*3/uL Absolute Neuts (auto) 3.8 (2.0-8.3) x10*3/uL Absolute Nucleated RBC 0.000 (0.0-0.012) X10*3/uL Nucleated RBC % (auto) 0.0 (0.0-0.2) /100WBC Hold Purple Top SEE NOTE Hold Blue Top SEE NOTE Sodium 144 (135-145) mmol/L Potassium 3.6 (3.3-5.1) mmol/L Chloride 110 H (96-108) mmol/L Carbon Dioxide 30 H (22-29) mmol/L Anion Gap 8 L (12-20) BUN 19 H (9-16) mg/dL Creatinine 0.65 (0.5-1.4) mg/dL Estim Creat Clear Calc 59.1 Estimated GFR > 60 Random Glucose 121 H (60-115) mg/dL Calcium 9.4 (8.4-10.2) mg/dL Total Bilirubin 0.2 (0.0-1.0) mg/dL Direct Bilirubin < 0.2 (0.0-0.5) mg/dL AST 33 H (5-31) U/L ALT 14 (0-31) U/L Alkaline Phosphatase 96 (39-117) U/L Troponin I High Sens < 2.7 (<3.5-17.0) ng/L Total Protein 7.9 (6.5-8.0) g/dL Albumin 3.8 (3.5-5.0) g/dL Lipase 27 (8-78) U/L Influenza Type A (PCR) NEGATIVE NEGATIVE (Negative) Influenza Type B (PCR) NEGATIVE NEGATIVE (Negative) RSV RNA Qual (PCR) NEGATIVE NEGATIVE (Negative) SARS-CoV-2 RNA (RT-PCR) NEGATIVE NEGATIVE (Negative) Independent Interpretation I performed an independent interpretation of an: CT Scan (Head: No acute intracranial pathology.) Radiology Impression Discussion of test interpretation with radiology: I have reviewed the radiologist's reading. Discharge Plan Discharge Clinical Impression: Sinusitis, acute Patient Disposition: Home, Self-Care Instructions: Sinusitis (ED) Prescriptions: New amoxicillin-pot clavulanate [Augmentin] 500-125 mg tablet 1 tab PO BID Qty: 14 0RF No Action pyridoxine (vitamin B6) 100 mg tablet 100 mg PO DAILY Qty: 90 3RF alendronate 70 mg tablet 1 tab PO QWEEK acetaminophen 500 mg tablet 2 tab PO Q6H PRN (Reason: pain) fluticasone propionate 50 mcg/actuation spray,suspension 1 spray intranasal BID loratadine 10 mg tablet 1 tab PO DAILY calcium citrate-vitamin D3 315 mg-6.25 mcg (250 unit) tablet 1 tab PO BID Biktarvy 50-200-25 mg tablet 1 tab PO DAILY bisacodyl [Dulcolax (bisacodyl)] 5 mg tablet,delayed release (DR/EC) 10 mg PO ONCE 1 Days Qty: 2 0RF Rx Instructions: take 2 tabs at noon the day before your colonoscopy polyethylene glycol 3350 [Miralax] 17 gram/dose powder 238 g PO ONCE Qty: 238 0RF Rx Instructions: As directed by gastroenterology department at [facility] Language: Amharic
[2024-12-22 13:40] LABS: Influenza A PCR NEGATIVE (Negative); Influenza B PCR NEGATIVE (Negative); Resp Syncy Virus RNA Qual PCR NEGATIVE (Negative); SARS COV2 PCR INHOUSE NEGATIVE (Negative)
[2024-12-22 14:00] VITALS: BP 136/78; PULSE 74; RESP 22; TEMP 36.7; O2SAT 99
[2024-12-22 14:05] LABS: MANUAL DIFF FLAG NO
[2024-12-22] MEDS: Amoxicillin/Potassium Clav 875 MG TABLET PO (14:10)
[2024-12-22] MEDS: 0.9 % Sodium Chloride 1,000 ML 999 ML IV (14:10)
[2024-12-22] MEDS: Ketorolac Tromethamine 10 MG TABLET PO (14:10)
[2024-12-22 14:14] LABS: Basophils Percent Auto 0.4 % (0-2); Eosinophils Absolute Auto 0.1 X10*3/uL (0.0-0.4); Eosinophils Percent Auto 0.9 % (0-4); Hemoglobin 13.7 g/dl (12.0-16.0); Imm Gran Abs Auto 0.02 X10*3/uL (0.00-0.03); Imm Gran Pct Auto 0.4 % (0.0-0.4); Lymphocytes Absolute Auto 0.9 X10*3/uL (1.2-4.9); Lymphocytes Percent Auto 16.3 % (20-40); Mean Corpuscular HGB Conc 32.6 g/dl (31.0-35.0); Mean Corpuscular Hemoglobin 29.5 pg (27.0-33.0); Mean Corpuscular Volume 90.3 fL (80.0-98.0); Mean Platelet Volume 9.9 fL (9.4-12.3); Monocytes Absolute Auto 0.6 X10*3/uL (0.1-1.2); Monocytes Percent Auto 10.6 % (2-11); Neutrophils Absolute Auto 3.8 x10*3/uL (2.0-8.3); Neutrophils Percent Auto 71.4 % (45-73); Platelet Count 308 X10*3/uL (160-400); Red Blood Count 4.65 X10*6/uL (4.20-5.50); Red Cell Distribution Width 13.5 % (11.0-16.0); White Blood Count 5.3 X10*3/uL (4.8-10.8)
[2024-12-22 14:22] LABS: Alanine Aminotransferase 14 U/L (0-31); Albumin Level 3.8 g/dL (3.5-5.0); Alkaline Phosphatase 96 U/L (39-117); Anion Gap 8 (12-20); Aspartate Amino Transferase 33 U/L (5-31); Bilirubin Direct < 0.2 mg/dL (0.0-0.5); Bilirubin Total 0.2 mg/dL (0.0-1.0); Blood Urea Nitrogen 19 mg/dL (9-16); Calcium 9.4 mg/dL (8.4-10.2); Carbon Dioxide 30 mmol/L (22-29); Chloride 110 mmol/L (96-108); Creatinine Clr Calc Pharmacy 59.1; Estimated Glomerular Filt Rate > 60; Glucose Random 121 mg/dL (60-115); Lipase 27 U/L (8-78); Potassium 3.6 mmol/L (3.3-5.1); Sodium 144 mmol/L (135-145); Total Protein 7.9 g/dL (6.5-8.0)
[2024-12-22 14:32] LABS: Troponin-I High Sensitivity < 2.7 ng/L (<3.5-17.0)
[2024-12-22 14:43] LABS: Influenza A PCR NEGATIVE (Negative); Influenza B PCR NEGATIVE (Negative); Resp Syncy Virus RNA Qual PCR NEGATIVE (Negative); SARS COV2 PCR INHOUSE NEGATIVE (Negative)
[2024-12-22] MEDS: iohexoL 350 MG/ML 100 ML INFUS..BTL IV (15:34)
[2024-12-22 17:03] VITALS: BP 145/89; PULSE 71; RESP 14; TEMP 36.7; O2SAT 99
[2024-12-22 17:25] VITALS: BP 145/89; PULSE 71; RESP 14; TEMP 36.7
== END 2024-12-22 17:26 | disposition home or self-care (01) ==
PROVIDERS: Emergency Provider Emergency Medicine
DX: J01.90 Acute sinusitis, unspecified (principal); R51.9 Headache, unspecified; R11.2 Nausea with vomiting, unspecified; I45.10 Unspecified right bundle-branch block; Z79.899 Other long term (current) drug therapy; Z03.818 Encounter for observation for suspected exposure to other biological agents ruled out
CPT/HCPCS: 0241U; 36415; 70450; 70496; 70498; 71045; 80048; 80076; 83690; 84484; 85025; 93005; 96360; 96361; 99284; 99285; Q9967

== ENCOUNTER → 2024-12-22 13:36 | Outpatient (BNV) | payer OTHER, SELFPAY | PROVIDERS: Emergency Provider Emergency Medicine; Visit Provider Radiology Diagnostic Radiology | DX: R51.9 Headache, unspecified (principal) | CPT/HCPCS: 70450; 70496; 70498; 71045 ==

== ENCOUNTER → 2024-12-22 13:36 | Outpatient (BNV) | payer OTHER, SELFPAY | PROVIDERS: Emergency Provider Emergency Medicine; Visit Provider Internal Medicine | DX: I45.10 Unspecified right bundle-branch block (principal); R94.31 Abnormal electrocardiogram [ECG] [EKG]; R51.9 Headache, unspecified | CPT/HCPCS: 93010 ==

== ENCOUNTER 2025-03-04 12:10 | Outpatient (REF) | payer OTHER, SELFPAY ==
[2025-03-04 13:32] LABS: MANUAL DIFF FLAG NO
[2025-03-04 13:50] LABS: Basophils Percent Auto 0.6 % (0-2); Eosinophils Absolute Auto 0.1 X10*3/uL (0.0-0.4); Eosinophils Percent Auto 0.9 % (0-4); Hematocrit 41.5 % (37.0-47.0); Hemoglobin 13.5 g/dl (12.0-16.0); Imm Gran Abs Auto 0.02 X10*3/uL (0.00-0.03); Imm Gran Pct Auto 0.3 % (0.0-0.4); Lymphocytes Percent Auto 15.5 % (20-40); Mean Corpuscular HGB Conc 32.5 g/dl (31.0-35.0); Mean Corpuscular Hemoglobin 29.5 pg (27.0-33.0); Mean Corpuscular Volume 90.6 fL (80.0-98.0); Mean Platelet Volume 10.6 fL (9.4-12.3); Monocytes Absolute Auto 0.6 X10*3/uL (0.1-1.2); Monocytes Percent Auto 8.5 % (2-11); Neutrophils Absolute Auto 4.9 x10*3/uL (2.0-8.3); Neutrophils Percent Auto 74.2 % (45-73); Platelet Count 311 X10*3/uL (160-400); Red Blood Count 4.58 X10*6/uL (4.20-5.50); Red Cell Distribution Width 13.2 % (11.0-16.0); White Blood Count 6.6 X10*3/uL (4.8-10.8)
[2025-03-04 13:59] LABS: Estimated Average Glucose 123 mg/dL; Hemoglobin A1C 142.1462 umol/L; Hemoglobin A1c % 5.9 % (<6.0); Total Hemoglobin (HGBA1C) 3468.0151 umol/L
[2025-03-04 14:05] LABS: Cholesterol 155 mg/dL (<200); HDL Cholesterol 49 mg/dL (>40); LDL Cholesterol Calculated 91 mg/dL (<100); Triglycerides 78 mg/dL (<150)
[2025-03-04 14:15] LABS: Alanine Aminotransferase 18 U/L (0-31); Alkaline Phosphatase 104 U/L (39-117); Anion Gap 12 (12-20); Aspartate Amino Transferase 27 U/L (5-31); Bilirubin Direct 0.1 mg/dL (0.0-0.5); Bilirubin Total 0.3 mg/dL (0.0-1.0); Blood Urea Nitrogen 24 mg/dL (9-16); Calcium 9.9 mg/dL (8.4-10.2); Carbon Dioxide 29 mmol/L (22-29); Chloride 107 mmol/L (96-108); Estimated Glomerular Filt Rate > 60; Glucose Random 118 mg/dL (60-115); Potassium 3.9 mmol/L (3.3-5.1); Sodium 144 mmol/L (135-145); TSH reflex Free T4 1.52 uIU/mL (0.32-4.0); Total Protein 7.9 g/dL (6.5-8.0); Vitamin D 25-OH Total 19.6 ng/mL (>30)
[2025-03-04 14:16] LABS: Reflex LDLD? No
[2025-03-04 14:23] LABS: HBsAGNum1 0.42 S/CO (0.00-0.99); Hepatitis B Surface Antigen Negative (Negative); Syphilis Screen Nonreactive (Nonreactive); ~Hepatitis C Antibody Nonreactive (Nonreactive)
[2025-03-05 16:08] LABS: HIV RNA PCR Qn Copies 21 copies/mL (NOT DETECTED); HIV RNA PCR Qn Log Copies 1.32 (NOT DETECTED)
[2025-03-07 11:13] LABS: TS Negative Control Passed; TS Panel A 0; TS Panel B 2; TS Positive Control Passed; TSpotTB Negative (Negative)
[2025-03-10 16:49] LABS: Absolute CD3 Count 762 cells/uL (840-3060); Absolute CD4 Count 225 cells/uL (490-1740); Absolute CD8 Count 524 cells/uL (180-1170); Absolute Lymphocytes 1119 cells/uL (850-3900); CD4 CD8 Ratio 0.43 (0.86-5.00); Percent CD3 Cells 68 % (57-85); Percent CD4 Cells 20 % (30-61); Percent CD8 Cells 47 % (12-42)
== END 2025-03-04 12:11 | disposition home or self-care (01) ==
LOC: HO.HHCL 12:10
PROVIDERS: Internal Medicine; Visit Provider Student in an Organized Health Care Education/Training Program
DX: Z21 Asymptomatic human immunodeficiency virus [HIV] infection status (principal); M81.0 Age-related osteoporosis without current pathological fracture; I87.2 Venous insufficiency (chronic) (peripheral); Z13.1 Encounter for screening for diabetes mellitus
CPT/HCPCS: 36415; 80053; 80061; 82248; 82306; 82550; 83036; 84443; 85025; 86359; 86360; 86481; 86780; 86803; 87340; 87536

== ENCOUNTER 2025-03-05 12:29 | Outpatient (REF) | payer OTHER, SELFPAY ==
[2025-03-05 14:48] LABS: CT PCR NOT DETECTED (Not Detect.); NG PCR NOT DETECTED (Not Detect.)
== END 2025-03-05 12:30 | disposition home or self-care (01) ==
LOC: HO.HHCL 12:29
PROVIDERS: Visit Provider Student in an Organized Health Care Education/Training Program
DX: Z21 Asymptomatic human immunodeficiency virus [HIV] infection status (principal)
CPT/HCPCS: 87491; 87591

== ENCOUNTER → 2025-03-11 07:00 | Outpatient (BNV) | payer OTHER, SELFPAY | PROVIDERS: Visit Provider Radiology Diagnostic Radiology | DX: Z01.818 Encounter for other preprocedural examination (principal) | CPT/HCPCS: 74018 ==

== ENCOUNTER 2025-03-11 07:25 | Day surgery (SDC) | payer OTHER, SELFPAY ==
[2025-03-09 09:45] VITALS: BMI 17.0
--- NOTE | 2025-03-10 08:41 | HO.ANESPROP2 ---
HPI - Anesthesia Eval Consult details Narrative: 69yo F for Left Lithotripsy ESW PMFSH Active Problems Active Problems: All Active Problems Bilateral kidney stones (Acute) Pap smear of anus with ASCUS (Acute) Kidney stone on left side (Acute) Past Medical History Medical History Pap smear of anus with ASCUS Osteoporosis Chronic venous insufficiency of lower extremity HIV (human immunodeficiency virus infection) Glaucoma Surgical History Surgical History H/O colonoscopy Social History Social History Patient Tobacco Use Status: Never used Tobacco Meds Allergies Allergy/AdvReac Type Severity Reaction Status Date / Time No Known Allergies Allergy Verified 12/22/24 12:47 Home Medications ?Medication ?Instructions ?Recorded ?Confirmed ?Last Taken ?Type acetaminophen 500 mg tablet 2 tab PO Q6H PRN pain 04/14/22 12/08/24 Unknown History alendronate 70 mg tablet 1 tab PO QWEEK 04/14/22 12/08/24 Unknown History bictegravir 50 mg-emtricitabine 1 tab PO DAILY 04/14/22 12/08/24 Unknown History 200 mg-tenofovir alafenam 25 mg tablet (Biktarvy) calcium 315 mg (as 1 tab PO BID 04/14/22 12/08/24 Unknown History citrate)-vitamin D3 6.25 mcg (250 unit) tablet fluticasone propionate 50 1 spray intranasal BID 04/14/22 12/08/24 Unknown History mcg/actuation nasal spray,suspension loratadine 10 mg tablet 1 tab PO DAILY 04/14/22 12/08/24 Unknown History Exam Height,Weight and Vital Signs: Height 5 ft 3 in Weight 43.545 kg Assessment and Plan Assessment Anesthesia Assessment: Chart Reviewed
--- NOTE | ~2025-03-11 | XR_ITS ---
EXAMINATION: XR ABDOMEN KUB CLINICAL INDICATION: pre Left ESWL COMPARISON: Correlated to CT dated November 20, 2024. TECHNIQUE: AP view of the abdomen. FINDINGS: Abundant stool which obscures the evaluation of the left kidney calculus. Dextroconvex curvature at the thoracolumbar junction and levoconvex curvature apex at L3-4. No intestinal obstruction pattern. No air-fluid levels. Endplate sclerosis and marginal osteophyte formation with decreased intervertebral disc height at L3-4. XR/XR KUB IMPRESSION: Unable to evaluate the left kidney calculus. Electronically signed by: Durga Sheikh MD 03/11/2025 07:38 AM EDT
[2025-03-11] MEDS: Lactated Ringers 1,000 ML 100 ML IVCONT (08:18)
--- NOTE | 2025-03-11 08:27 | HO.ANESPROP2 ---
[facility] Active Problems Active Problems: All Active Problems Bilateral kidney stones (Acute) Pap smear of anus with ASCUS (Acute) Kidney stone on left side (Acute) Past Medical History Medical History Pap smear of anus with ASCUS Osteoporosis Chronic venous insufficiency of lower extremity HIV (human immunodeficiency virus infection) Glaucoma Functional capacity: independent ambulation Patient : No Family History Family history of problems with anesthesia: No Surgical History Surgical History H/O colonoscopy History of Problems with Anesthesia: No Social History Social History Patient Tobacco Use Status: Never used Tobacco Advance Directives: No Advance Directives Information Provided: Yes Meds Allergies Allergy/AdvReac Type Severity Reaction Status Date / Time No Known Allergies Allergy Verified 12/22/24 12:47 Active Medications: Current Medications Lactated Ringer's (Lr) 1,000 mls @ 100 mls/hr IVCONT .Q10H ALEX Last Admin: 03/11/25 08:18 Dose: 100 mls/hr Home Medications ?Medication ?Instructions ?Recorded ?Confirmed ?Last Taken ?Type acetaminophen 500 mg tablet 2 tab PO Q6H PRN pain 04/14/22 12/08/24 Unknown History alendronate 70 mg tablet 1 tab PO QWEEK 04/14/22 12/08/24 Unknown History bictegravir 50 mg-emtricitabine 1 tab PO DAILY 04/14/22 12/08/24 Unknown History 200 mg-tenofovir alafenam 25 mg tablet (Biktarvy) calcium 315 mg (as 1 tab PO BID 04/14/22 12/08/24 Unknown History citrate)-vitamin D3 6.25 mcg (250 unit) tablet fluticasone propionate 50 1 spray intranasal BID 04/14/22 12/08/24 Unknown History mcg/actuation nasal spray,suspension loratadine 10 mg tablet 1 tab PO DAILY 04/14/22 12/08/24 Unknown History Exam Height,Weight and Vital Signs: Height 5 ft 3 in Weight 43.545 kg Airway Mallampati Class: II TM Dist: >3cm Neck ROM: Full Heart: RRR Lungs: CTA Assessment and Plan Assessment Anesthesia Assessment: Anesthesia Plan Discussed and Chart Reviewed Final Anesthetic Review Family History of Problems with Anesthesia: No History of Problems with Anesthesia: No NPO: Yes ASA Class: II Final Preanesthetic Review: Meds/Allgs Chart Reviewed, Consent Obtained/Reviewed and Anes Risks/Benef Reviewed Patient Risk: Low Procedure Risk: Low Anesthetic Plan Anesthetic Plan: MAC: Disposition: Standard PACU
--- NOTE | 2025-03-11 08:46 | W.PM.OPN ---
Operative Note Operative Note Date of Service: 03/11/25 Narrative: PreOperative Diagnosis:? ? Left Renal stone Post Operative Diagnosis:?Left? Renal stone Procedure:?Left ESWL Surgeon:?Dr Zenobia Bowie Anesthesia:? General Indications for procedure: The patient understands there is a risk of bruising or hematoma to the kidney, infection, and stone migration following the procedure and subsequent intervention may be required.? - Imaging 9mm x 3mm stone Left kidney, renal pelvis Procedure: After informed consent was verified the patient was brought to the operating room and placed in a supine position.? Anesthesia was performed per protocol. Safety pause time-out was performed. Imaging was displayed in the room and laterality confirmed. ESWL was performed.?The stone was visualized on both fluoroscopy and ultrasound.? Shockwave lithotripsy was performed, with a maximum rate of 120 hertz. After the first 300 shocks a pause for 3 minutes was completed.? A total of 2500 shocks to a maximum of power of 18 with a maximum rate of 120 hertz.? Some fragmentation of the stone was appreciated. The patient tolerated the procedure well and was transferred to the recovery area upon completion. Complications: None
--- NOTE | 2025-03-11 08:46 | MHC.SHP ---
Pre-Procedural Eval Section A - 24 Hr Update-Section A only Date of Service: 03/11/25 The patient is an INPATIENT: No The patient has been examined within 24 hours of the surgical procedure. The History & Physical has been completed within 30 days and I have reviewed it.: Yes Section B - Complete if H&P > 30 days Chief Complaint: Calculus of kidney, left Allergies: Allergies Allergy/AdvReac Type Severity Reaction Status Date / Time No Known Allergies Allergy Verified 12/22/24 12:47 Plan Diagnosis/Plan: Unchanged I have reviewed the history and physical and performed a pertinent physical examination on my patient. No changes have occurred unless specified. Left ESWL. Discussed risks to include but not limited to, blood in the urine, bruising to the skin, kidney hematoma, possible need for another procedure if a stone fragment obstructs the ureter while passing, possible need to repeat procedure if stone is not completely fragmented. Time Spent With Patient Time: Total time managing care of this patient today ____ minutes.
[2025-03-11 09:17] VITALS: BP 130/80; PULSE 61; RESP 18; TEMP 36.8; O2SAT 100
[2025-03-11 11:17] VITALS: BP 152/79; PULSE 80; RESP 16; TEMP 36.1; O2SAT 99
[2025-03-11 11:22] VITALS: BP 143/83; PULSE 83; RESP 18; O2SAT 96
[2025-03-11 11:27] VITALS: BP 177/81; PULSE 66; RESP 17; O2SAT 98
[2025-03-11 11:32] VITALS: BP 159/84; PULSE 79; RESP 17; O2SAT 96
--- NOTE | 2025-03-11 11:41 | HO.POSTANES ---
Post Anesthesia Evaluation Post Anesthesia Evaluation Date of Service: 03/11/25 Vital Signs: Vital Signs Temp Pulse Resp BP Pulse Ox O2 Del Method 03/11/25 11:32 79 17 159/84 H 96 Room Air 03/11/25 11:27 66 17 177/81 H 98 Room Air 03/11/25 11:22 83 18 143/83 H 96 Room Air 03/11/25 11:17 97.0 F 80 16 152/79 H 99 Room Air 03/11/25 09:17 98.2 F 61 18 130/80 100 Room Air Anesthesia: General LMA Mental Status: Awake Pain Control: Satisfactory Nausea/Vomiting: None Hydration: Adequate Anesthesia-Related Issues: No Anes. Related Issues
[2025-03-11 11:47] VITALS: BP 165/90; PULSE 65; RESP 18; TEMP 36.2; O2SAT 98
== END 2025-03-11 12:26 | disposition home or self-care (01) ==
PROVIDERS: Visit Provider Urology
PROC: (CPT 50590; principal; 2025-03-11 08:30)
DX: N20.0 Calculus of kidney (principal); I87.2 Venous insufficiency (chronic) (peripheral); B20 Human immunodeficiency virus [HIV] disease; M81.0 Age-related osteoporosis without current pathological fracture; H40.9 Unspecified glaucoma; Z79.899 Other long term (current) drug therapy
CPT/HCPCS: 50590; 74018; J0131; J0690; J1100; J1938; J2003; J2250; J2405; J2704; J3010

== ENCOUNTER → 2025-03-11 07:25 | Outpatient (BNV) | payer OTHER, SELFPAY | PROVIDERS: Visit Provider Urology | DX: N20.0 Calculus of kidney (principal) | CPT/HCPCS: 50590 ==

== ENCOUNTER 2025-04-13 12:32 | Outpatient (AMB) | payer OTHER, SELFPAY ==
--- NOTE | 2025-04-13 12:43 | A.OFFVIS_ITS ---
Vital Signs 04/13/25 12:45 Weight 99 lb BP 136/80 Blood Pressure Location Rt brachial Position Sitting Pulse 68 Intake Visit Reasons: 6m f/u anoscopy Intake Note: Patient here for follow up anoscopy. Last office visit 10-27-24. Patient c/o: recent diarrhea. Taking Pepto bismol/ Immodium helps Left ESWL~ 03-11-25. Chief Telephone Operator Required: No Accompanied by: sister Ruth Allergies No Known Allergies Allergy (Verified 04/13/25 12:50) Medication List - Last Reconciled 04/13/25 by Christiano Davis MD acetaminophen 2 tabs PO Q6H PRN alendronate 1 tab PO QWEEK ynyuxoizs-qtryryqx-yffmwwq ala 50-200-25 mg (Biktarvy) 1 tab PO DAILY bisacodyl (Dulcolax (bisacodyl)) 10 mg (2 x 5 mg) PO ONCE 1 day calcium citrate-vitamin D3 315 mg-6.25 mcg (250 unit) 1 tab PO BID fluticasone propionate 50 mcg/actuation 1 spray intranasal BID loratadine 1 tab PO DAILY polyethylene glycol 3350 (Miralax) 238 grams PO ONCE pyridoxine (vitamin B6) 100 mg PO DAILY HPI HPI 6m f/u anoscopy: Details: 69-year-old female for a follow-up for an abnormal Pap smear of the anus. She had an anal Pap last August, because of her history of HIV. This showed atypical squamous cells of uncertain significance. She denies any bleeding or any anal complaints She is severely visually impaired since childhood. She denies any problems with bowel movements. She has never had any HIV related diseases. I did her anoscopy in October,. This was unremarkable. I had recommended repeating the anoscopy in 6 months. She denies any new complaints. [facility] Medical History Pap smear of anus with ASCUS Osteoporosis Chronic venous insufficiency of lower extremity HIV (human immunodeficiency virus infection) Glaucoma Surgical History H/O colonoscopy Social History Are you a primary transitional care manager to a significant other at home: No Do you presently have visiting nurse or other home services: No Patient Tobacco Use Status: Never used Tobacco Review of Systems Const Denies chills and Denies fever(s) Eyes Details: Legally blind Card Denies chest pain, Denies dyspnea and Denies dyspnea on exertion Resp Denies cough, Denies dyspnea and Denies dyspnea on exertion GI Denies hematochezia and Denies change in bowel habits Denies hematuria Musc Denies back pain and Denies limited range of motion Neuro Denies focal weakness and Denies convulsions Psych Denies depression and Denies mood swings Physical Exam Vital Signs: Last Vital Signs Pulse 68 04/13/25 12:45 BP 136/80 04/13/25 12:45 Const General: comfortable and no acute distress Orientation/consciousness: patient oriented x3 Neck Neck: Yes no lymphadenopathy Resp Auscultation: clear to auscultation bilaterally Cardio Rhythm: regular rhythm GI Other: Rectal exam shows small external hemorrhoids on both the left and right side, no perianal lesions Palpation (GI): Soft to palpation, nontender and no guarding Neuro General: patient oriented x3 Office Procedures Anoscopy She was in kneeling óscar-knife position. The anoscope was gently inserted. A full examination of the anal canal was done. She did have small external and internal hemorrhoids. There were no lesions seen. There was no fissure or ulceration. There was no blood in the exam finger. There was no abnormal looking mucosa. There was no induration on digital exam. [id number] Assessment & Plan Assessment & Plan (1) Pap smear of anus with ASCUS: Code(s): R85.610 - Atypical squamous cells of undetermined significance on cytologic smear of anus (ASC-US) Category: Medical Plan: Follow up anoscopy does not suggest any lesions or any abnormal mucosa. I recommended for her to follow up again in about 6 months acute repeat the anoscopy She is currently on Biktarvy for her HIV. Coding Level of Care Code Est Pt Level 3 (83609) Diagnoses Pap smear of anus with ASCUS R85.610 CPT Codes Details - CPT: 02241-Hgpvaiii ([id number])
[2025-04-13 12:45] VITALS: BP 136/80; PULSE 68
== END 2025-04-13 13:05 | disposition home or self-care (01) ==
LOC: HO.HGS 12:33
PROVIDERS: Visit Provider Surgery
DX: R85.610 Atypical squamous cells of undetermined significance on cytologic smear of anus (ASC-US) (principal)
CPT/HCPCS: 46600; 99213

== ENCOUNTER → 2025-04-13 12:32 | Outpatient (BNVA) | payer OTHER, SELFPAY | PROVIDERS: Visit Provider Surgery | DX: B20 Human immunodeficiency virus [HIV] disease (principal); R85.610 Atypical squamous cells of undetermined significance on cytologic smear of anus (ASC-US) | CPT/HCPCS: 46600; 99212 ==

== ENCOUNTER 2025-04-22 13:18 | Outpatient (REF) | payer OTHER, SELFPAY ==
--- NOTE | ~2025-04-22 | XR_ITS ---
EXAMINATION: XR ABDOMEN KUB CLINICAL INDICATION: N20.0 - Calculus of kidney COMPARISON: March 11, 2025. Correlated to CT abdomen dated November 20, 2024. TECHNIQUE: AP view of the abdomen. FINDINGS: Abundant stool and gas throughout the nondilated intestine. Unable to evaluate the kidney shadows. No intestinal obstruction pattern. Dextroconvex curvature of the thoracolumbar junction and levoconvex curvature of the lower lumbar spine. XR/XR KUB IMPRESSION: No gross calcifications in the kidney shadows. Prior CT demonstrated bilateral nonobstructing nephrolithiasis. Electronically signed by: Durga Sheikh MD 04/22/2025 02:05 PM EDT
== END 2025-04-22 13:19 | disposition home or self-care (01) ==
LOC: HO.XRAY 13:18
PROVIDERS: PCP Internal Medicine; Visit Provider Urology
DX: N20.0 Calculus of kidney (principal)
CPT/HCPCS: 74018

== ENCOUNTER → 2025-04-22 13:25 | Outpatient (BNV) | payer OTHER, SELFPAY | PROVIDERS: PCP Internal Medicine; Visit Provider Radiology Diagnostic Radiology | DX: N20.0 Calculus of kidney (principal) | CPT/HCPCS: 74018 ==

== ENCOUNTER 2025-04-24 10:09 | Outpatient (REF) | payer OTHER, SELFPAY | END 2025-04-24 10:10 | disposition home or self-care (01) | LOC: HO.LAB 10:09 | PROVIDERS: Visit Provider Urology | DX: Z13.9 Encounter for screening, unspecified (principal) | CPT/HCPCS: 81003 ==

== ENCOUNTER 2025-04-24 10:09 | Outpatient (AMB) | payer OTHER, SELFPAY ==
--- NOTE | 2025-04-24 10:16 | A.OFFVIS_ITS ---
Intake Visit Reasons: ESWL- follow up/KUB Intake Note: Patient is present for post op follow up ESWL 03/11/25 Urology Medication:VITAMIN B6 Antibiotic Allergy:NONE Blood Thinner:NONE imaging KUB :04/22/25 Mutual Fund Accountant Required: Yes Mutual Fund Accountant Language: Director Of Engineering Services: Mutual Fund Accountant Present Information Interpreted: non-clinical & clinical Allergies No Known Allergies Allergy (Verified 04/13/25 12:50) Medication List - Last Reconciled 04/24/25 by Zenobia Bowie MD acetaminophen 2 tabs PO Q6H PRN alendronate 1 tab PO QWEEK wbrebaisz-xxnqzcju-bldadhq ala 50-200-25 mg (Biktarvy) 1 tab PO DAILY bisacodyl (Dulcolax (bisacodyl)) 10 mg (2 x 5 mg) PO ONCE 1 day calcium citrate-vitamin D3 315 mg-6.25 mcg (250 unit) 1 tab PO BID fluticasone propionate 50 mcg/actuation 1 spray intranasal BID loratadine 1 tab PO DAILY polyethylene glycol 3350 (Miralax) 238 grams PO ONCE pyridoxine (vitamin B6) 100 mg PO DAILY HPI Comments Details: 04/24/25--s/p left ESWL - 03/11/25 History of Present Illness - The patient is a 69-year-old female presenting for follow-up after treatment for kidney stones. - The patient underwent treatment for kidney stones and was asked if she noticed any fragments in her urine post-procedure. - Swelling in the legs was noted, which is not related to the kidney stones, and is being managed by her primary care physician. Urinary Symptoms Review Results Discussion Notes I discussed with the patient that the swelling in her legs is not related to her kidney stones and that her primary care physician will continue to manage this issue. I recommended scheduling an ultrasound in three months to evaluate the kidneys and determine if further treatment is necessary. Plan - Schedule an ultrasound in three months to assess the kidneys post-treatment for kidney stones. - Follow-up appointment in four months to review ultrasound results and decide on further management if needed. Patient Instructions Patient was informed and verbally consented to the use of an ambient scribe for clinic note documentation during this visit. 12/08/24--Shgrdrnigz-jkkeea-jk CT stone protocol-reviewed results-5-6 mm left mid pole kidney stone right kidney small stone noted. The patient complains of intermittent left kidney pain. Discussed left ESWL. 09/15/24--ayaan is a 69 year old patient here as a new patient evaluation for kidney stones. She denies flank pain currently. Denies hematuria or irritative voiding symptoms Abdominal ultrasound 06/27/2024--5 mm left kidney stone Discussed treatment management to include conservative management versus ESWL, shockwave lithotripsy. CT stone protocol, confirm renal calculus versus renal vascular calcification. PFSH Medical History Pap smear of anus with ASCUS Osteoporosis Chronic venous insufficiency of lower extremity HIV (human immunodeficiency virus infection) Glaucoma Surgical History H/O colonoscopy Social History Are you a primary skin care technician to a significant other at home: No Do you presently have visiting nurse or other home services: No Patient Tobacco Use Status: Never used Tobacco Review of Systems Const All systems reviewed & are unremarkable except as noted in HPI and below Reports no additional complaints Eyes Reports no additional complaints ENT Reports no additional complaints Card Reports no additional complaints Resp Reports no additional complaints GI Reports no additional complaints Reports as per HPI Musc Reports no additional complaints Skin/Breast Reports system reviewed and no additional complaints, except as documented Neuro Reports no additional complaints Psych Reports no additional complaints Endo Reports no additional complaints Tomas/Lymph Reports no additional complaints Aller/Immun Reports no additional complaints Results AMB Urinalysis, Automated UA Leukoctes 125 Severino/uL Last Edit by Cinthya Shine MA on 04/24/25 13:49 UA Nitrite Negative Last Edit by Cinthya Shine MA on 04/24/25 13:49 UA Urobilinogen 3.5 mg/dL Last Edit by Cinthya Shine MA on 04/24/25 13:49 UA Protein 0 mg/dL Last Edit by Cinthya Shine MA on 04/24/25 13:49 UA pH 6.0 Last Edit by Cinthya Shine MA on 04/24/25 13:49 UA Blood 10 Son/uL Last Edit by Cinthya Shine MA on 04/24/25 13:49 UA Specific [place] 1.020 Last Edit by Cinthya Shine MA on 04/24/25 13:49 UA Ketone Negative Last Edit by Cinthya Shine MA on 04/24/25 13:49 UA Bilirubin 0 mg/dL Last Edit by Cinthya Shine MA on 04/24/25 13:49 UA Glucose 0 mg/dL Last Edit by Cinthya Shine MA on 04/24/25 13:49 Results Reviewed Results Reviewed: Date of Service: 11/20/24 CLINICAL HISTORY: N20.0 - Calculus of kidney CT abdomen and pelvis without contrast Comparison: None Findings: There is right middle lobe scarring.. Solid organs are within normal limits. There are no abnormal findings in the gallbladder fossa. There are bilateral renal parenchymal calculi. No bowel obstruction, pneumoperitoneum, or pneumatosis. Pelvic contents unremarkable. Normal appendix. No acute fracture. IMPRESSION: No acute findings. Date of Service: 06/27/24 US ABDOMEN COMPLETE CLINICAL INFORMATION: Patient with ongoing left upper quadrant pain. COMPARISON: None available. TECHNIQUE: Real-time imaging of the abdominal viscera. FINDINGS: PANCREAS: Normal. ABDOMINAL AORTA: Aorta INFERIOR VENA CAVA: Visualized portions are normal. LIVER: Normal. The liver is normal in size. The liver contour is normal. Parenchymal echogenicity is normal. No focal hepatic lesion. There is no intrahepatic biliary duct dilatation seen. GALLBLADDER: Normal. The gallbladder is physiologically distended without evidence of stones, sludge, polyps, wall thickening or pericholecystic fluid. COMMON BILE DUCT: Normal in caliber measuring 0.5 cm in diameter. RIGHT KIDNEY: Normal. No hydronephrosis. No renal calculi or focal parenchymal lesions. The kidney measures 9.5 cm in maximum dimension. LEFT KIDNEY: 5 mm nonobstructing mid pole renal stone. No hydronephrosis or focal parenchymal lesions. The kidney measures 9.4 cm in maximum dimension. SPLEEN: Normal. The spleen measures 8.4 cm in maximum dimension. FREE FLUID: None. IMPRESSION: A 5 mm nonobstructing left renal stone. No hydronephrosis. Assessment & Plan Assessment & Plan (1) Bilateral kidney stones: Code(s): N20.0 - Calculus of kidney Category: Medical Plan Bilateral kidney stones left greater than right. Left mid pole kidney stone 5-6 mm Left ESWL Orders: Orders AMB Urinalysis Automated Today Z13.9 - Encounter for screening, unspecified US renal BI 3 Months N20.0 - Calculus of kidney Coding Diagnoses Bilateral kidney stones N20.0
== END 2025-04-24 11:32 | disposition home or self-care (01) ==
LOC: HO.HUSH 10:10
PROVIDERS: Visit Provider Urology
DX: Z13.9 Encounter for screening, unspecified (principal)

== ENCOUNTER 2025-07-30 07:34 | Outpatient (REF) | payer OTHER, SELFPAY ==
[2025-08-06 12:58] LABS: HPV MRNA E6/E7 Rectal DETECTED
[2025-08-11 07:48] LABS: HPV 16 RNA, Rectal NOT DETECTED; HPV 18/45 RNA Rectal NOT DETECTED
== END 2025-07-30 07:35 | disposition home or self-care (01) ==
LOC: HO.LNP 07:34
PROVIDERS: Visit Provider Internal Medicine
DX: Z12.12 Encounter for screening for malignant neoplasm of rectum (principal); Z12.11 Encounter for screening for malignant neoplasm of colon; Z12.4 Encounter for screening for malignant neoplasm of cervix; N95.2 Postmenopausal atrophic vaginitis; R85.618 Other abnormal cytological findings on specimens from anus
CPT/HCPCS: 87624; 87625; 88112; 88175

== ENCOUNTER 2025-08-05 14:08 | Outpatient (REF) | payer OTHER, SELFPAY | END 2025-08-05 14:09 | disposition home or self-care (01) | LOC: HO.MAMMO 14:08 | PROVIDERS: PCP Internal Medicine; Visit Provider Internal Medicine | DX: Z12.31 Encounter for screening mammogram for malignant neoplasm of breast (principal) | CPT/HCPCS: 77063; 77067 ==

== ENCOUNTER → 2025-08-05 14:15 | Outpatient (BNV) | payer OTHER, SELFPAY | PROVIDERS: PCP Internal Medicine; Visit Provider Internal Medicine | DX: Z12.31 Encounter for screening mammogram for malignant neoplasm of breast (principal) | CPT/HCPCS: 77063; 77067 ==

== ENCOUNTER 2025-09-04 10:21 | Outpatient (REF) | payer OTHER, SELFPAY ==
--- NOTE | ~2025-09-04 | US_ITS ---
CLINICAL HISTORY: N20.0 - Calculus of kidney US renal with Color Doppler Comparison: CR/DC/SR - XR KUB - 03/11/25 07:[address]/SR - CT ABDOMEN PELVIS WO IV CON - 11/20/24 14:50 EST US/DC/SR - US ABDOMEN COMPLETE - 06/27/24 09:55 EDT Findings: Right kidney normal size and echotexture, 9.7 cm length. No hydronephrosis. No renal mass. Normal color flow. Nonobstructing caliceal stone midpole measuring 6 x 5 x 3 mm. Left kidney normal size and echotexture, 9.5 cm length. No hydronephrosis. No renal mass. Normal color flow. Nonobstructing caliceal stone lower pole measuring 3 mm. Impression: 1. Bilateral nephrolithiasis. No evidence of hydronephrosis. This document has been electronically signed by: Mike Ramirez MD on 09/04/2025 14:09:55
== END 2025-09-04 10:22 | disposition home or self-care (01) ==
LOC: HO.US 10:21
PROVIDERS: PCP Internal Medicine; Visit Provider Nurse Practitioner Family
DX: N20.0 Calculus of kidney (principal)
CPT/HCPCS: 76775

== ENCOUNTER → 2025-09-04 10:23 | Outpatient (BNV) | payer OTHER, SELFPAY | PROVIDERS: PCP Internal Medicine; Visit Provider Radiology Diagnostic Radiology | DX: N20.0 Calculus of kidney (principal) | CPT/HCPCS: 76775 ==

== ENCOUNTER 2025-09-23 12:49 | Outpatient (AMB) | payer OTHER, MEDICAID, SELFPAY ==
--- NOTE | 2025-09-23 12:57 | MHC.OFFVIS ---
Intake Visit Reasons: follow up/US Intake Note: Patient is present for post op follow up Last procedure ESWL 03/11/25 Urology Medication:VITAMIN B6 Antibiotic Allergy:NONE Blood Thinner:NONE Imaging:Renal Ultrasound 09/04/25 PVR:37 mls Health And Physical Education Teacher Required: Yes Health And Physical Education Teacher Language: Dramatic Director Services: Health And Physical Education Teacher Present Health And Physical Education Teacher Name: [id number] Information Interpreted: non-clinical & clinical Accompanied by: Sister Allergies No Known Allergies Allergy (Verified 09/23/25 13:19) Medication List - Last Reconciled 09/23/25 by KARMA Villarreal acetaminophen 2 tabs PO Q6H PRN alendronate 1 tab PO QWEEK yjyibjcyt-kuigbbzk-qhpzoti ala 50-200-25 mg (Biktarvy) 1 tab PO DAILY bisacodyl (Dulcolax (bisacodyl)) 10 mg (2 x 5 mg) PO ONCE 1 day calcium citrate-vitamin D3 315 mg-6.25 mcg (250 unit) 1 tab PO BID fluticasone propionate 50 mcg/actuation 1 spray intranasal BID loratadine 1 tab PO DAILY polyethylene glycol 3350 (Miralax) 238 grams PO ONCE pyridoxine (vitamin B6) 100 mg PO DAILY HPI Comments Details: Barbara is a 70-year-old Niuean-speaking female patient of Dr. Ch was accompanied by her sister at today's office visit. She has a past medical history of glaucoma, HIV, osteoporosis, and chronic venous insufficiency of lower extremity. She presents to the office today for follow-up of her nephrolithiasis. In discussion with the patient today she reports since her last office visit here she continues to experience right-sided flank pain. Most recent renal imaging results reviewed with the patient today. Renal ultrasound 08/29 bilateral kidneys are normal in size and echotexture. Nonobstructing calyceal stone mid pole measuring 6 x 5 x 3 mm. Left kidney with nonobstructing calyceal stone in the lower pole measuring 3 mm. No hydronephrosis noted bilaterally. We did discuss at length nephrolithiasis as well as variability with stone sizing on imaging. We did discussed obtaining CT KUB for further assessment evaluation given patient is experiencing flank pain. She is adamant that she will need a surgical intervention as she has been having flank pain. In office urinalysis results reviewed with the patient today. She denies urinary urgency, urinary frequency, incontinence, nocturia, hematuria, dysuria, foul smelling urine, changes to urinary stream, fever, and or chills. She is happy with her current voiding parameters. She discusses at length her longstanding history of nephrolithiasis as well as previous surgical intervention for her nephrolithiasis. She continues to be adamant throughout today's entire office visit that she will need a surgical procedure. We did discuss risks and benefits of surgical intervention. All questions were answered. She otherwise offers no other issues or concerns at this time. LAST OFFICE NOTES: 04/24/25--s/p left ESWL - 03/11/25 History of Present Illness - The patient is a 69-year-old female presenting for follow-up after treatment for kidney stones. - s/p Left ESWL 03/11/25 - The patient underwent treatment for kidney stones and was asked if she noticed any fragments in her urine post-procedure. - Swelling in the legs was noted, which is not related to the kidney stones, and is being managed by her primary care physician. Plan - Schedule an renal ultrasound in three months. - Follow-up appointment in four months to review ultrasound results and decide on further management if needed. 12/08/24--Ayjwgzqbyb-cedjgy-kf CT stone protocol-reviewed results-5-6 mm left mid pole kidney stone right kidney small stone noted. The patient complains of intermittent left kidney pain. Discussed left ESWL. 09/15/24--Barbara is a 69 year old patient here as a new patient evaluation for kidney stones. She denies flank pain currently. Denies hematuria or irritative voiding symptoms Abdominal ultrasound 06/27/2024--5 mm left kidney stone Discussed treatment management to include conservative management versus ESWL, shockwave lithotripsy. CT stone protocol, confirm renal calculus versus renal vascular calcification. [facility] Medical History Pap smear of anus with ASCUS Osteoporosis Chronic venous insufficiency of lower extremity HIV (human immunodeficiency virus infection) Glaucoma Surgical History H/O colonoscopy Social History Are you a primary transitional care manager to a significant other at home: No Do you presently have visiting nurse or other home services: No Patient Tobacco Use Status: Never used Tobacco Review of Systems Const All systems reviewed & are unremarkable except as noted in HPI and below Physical Exam Const General: cooperative, comfortable, no acute distress, well developed, alert and awake Orientation/consciousness: patient oriented x3 Limitations: language barrier HEENT Head: Yes normal to inspection, Yes normocephalic and Yes atraumatic Ears: hearing grossly normal bilaterally Neck Neck: Yes normal visual inspection and Yes trachea midline Chest Chest palpation & inspection: normal inspection of the chest Resp Effort & Inspection: normal respiratory effort and able to speak in complete sentences Cardio Rate: regular rate GI Inspection: Yes normal to inspection General: Yes no CVA tenderness Back/Spine/Pelvis Back: no CVA tenderness Skin General skin exam: no rashes or lesions noted Neuro General: patient oriented x3 Extrem General: Yes normal to inspection Psych Appearance: grossly normal and well kempt Mental Status: mental status grossly normal Speech and movement: Normal speech and movement present and Clear speech present Affect: normal affect Attitude: cooperative Thought process: Normal thought process present Thought content: Normal thought content present Insight: Fair insight present (Psych) Judgement: Fair judgement present (Psych) Office Procedures Post Void Residual Post Residual Void Post Void Residual (PVR): 37 [id number] Void Residual by ultrasound Results AMB Urinalysis, Automated UA Leukoctes 0 Severino/uL Last Edit by Cinthya Shine [facility] on 09/23/25 13:14 UA Nitrite Negative Last Edit by Cinthya Shine [facility] on 09/23/25 13:14 UA Urobilinogen 0.2 mg/dL Last Edit by Cinthya Shine [facility] on 09/23/25 13:14 UA Protein 15 mg/dL Last Edit by Cinthya Shine [facility] on 09/23/25 13:14 UA pH 6.0 Last Edit by Cinthya Shine [facility] on 09/23/25 13:14 UA Blood 0 Son/uL Last Edit by Cinthya Shine [facility] on 09/23/25 13:14 UA Specific [place] 1.015 Last Edit by Cinthya Shine [facility] on 09/23/25 13:14 UA Ketone Negative Last Edit by ROSA Nuñez on 09/23/25 13:14 UA Bilirubin 1 mg/dL Last Edit by ROSA Nuñez on 09/23/25 13:14 UA Glucose 0 mg/dL Last Edit by ROSA Nuñez on 09/23/25 13:14 Results Reviewed Results Reviewed: Laboratory Last Values Urine pH (Auto) 6.0 09/23/25 13:14 Specific [place] (Auto) 1.015 09/23/25 13:14 Urine Protein (Auto) 15 mg/dL 09/23/25 13:14 Glucose (UA)(Auto) 0 mg/dL 09/23/25 13:14 Urine Ketones (Auto) Negative 09/23/25 13:14 Urine Blood (Auto) 0 Son/uL 09/23/25 13:14 Urine Nitrite (Auto) Negative 09/23/25 13:14 Urine Bilirubin (Auto) 1 mg/dL 09/23/25 13:14 Urine Urobilinogen (Auto) 0.2 mg/dL 09/23/25 13:14 Leukocyte Esterase (Auto) 0 Severino/uL 09/23/25 13:14 Date of Service: 09/04/25 Procedure(s): US renal BI Findings: Right kidney normal size and echotexture, 9.7 cm length. No hydronephrosis. No renal mass. Normal color flow. Nonobstructing caliceal stone midpole measuring 6 x 5 x 3 mm. Left kidney normal size and echotexture, 9.5 cm length. No hydronephrosis. No renal mass. Normal color flow. Nonobstructing caliceal stone lower pole measuring 3 mm. Assessment & Plan Assessment & Plan (1) Bilateral kidney stones: Code(s): N20.0 - Calculus of kidney Category: Medical Plan In office urinalysis results reviewed with the patient today; as noted above. Most recent renal imaging results with the patient today; as noted above. Will obtain CT KUB for further assessment evaluation. Continue vitamin B6 as well as hydration as discussed. All questions were answered. She denies any bothersome urinary issues. She reports be happy with current voiding parameters. We discussed adding 1 oz of lemon juice to water daily. We did discussed worsening symptoms. We did discussed further interventions and risks and benefits of these interventions. Follow-up with imaging to be completed prior; or sooner with any issues, concerns, and or questions. Orders: Orders CT kidney stone Today N20.0 - Calculus of kidney, R10.A0 - Flank pain, unspecified side Patient Instructions: The patient had an opportunity to ask questions regarding the treatment plan. All questions were answered. Physical exam, labs, and imaging were discussed and reviewed in detail. As well as risks, benefits, and discussion of treatment choices. No major barriers to understanding were identified. The patient expressed understanding and agreement with the above treatment plan. The patient was made aware they should contact our office by phone for worsening of their current condition, the appearance of new symptoms, or with any questions or concerns. Compliance is encouraged with any medications and follow up testing that is ordered. It is a privilege to be allowed the opportunity to participate in? your urological care.? Again, if you have any questions or concerns If you have any questions or concerns please do not hesitate to contact me. The office is [phone]. This note is constructed using voice recognition software. While every effort has been made to ensure accuracy stabber errors may have been included. Yours sincerely, KARMA Villarreal Coding Level of Care Code Est Pt Level 3 (65427) Complex EM visit Add On G2211 Diagnoses Bilateral kidney stones N20.0 CPT Codes Post Residual Void - PVR CPT Code: 95102-Csmy Void Residual by ultrasound ([id number])
== END 2025-09-23 13:49 | disposition home or self-care (01) ==
LOC: HO.HUSH 12:50
PROVIDERS: PCP Internal Medicine; Visit Provider Nurse Practitioner Family
DX: N20.0 Calculus of kidney (principal)
CPT/HCPCS: 99213; G2211

== ENCOUNTER → 2025-09-23 12:49 | Outpatient (BNVA) | payer OTHER, SELFPAY | PROVIDERS: PCP Internal Medicine; Visit Provider Nurse Practitioner Family | DX: N20.0 Calculus of kidney (principal) | CPT/HCPCS: 51798; 99212 ==

== ENCOUNTER 2025-10-08 12:55 | Outpatient (AMB) | payer MEDICAID, SELFPAY ==
--- NOTE | 2025-10-08 13:00 | A.OFFVIS_ITS ---
Vital Signs 10/08/25 13:12 Height 5 ft 3 in Weight 99 lb 2 oz BMI 17.6 BP 142/64 H Blood Pressure Location Lt brachial Position Sitting Pulse 70 Intake Visit Reasons: 6m f/u anoscopy Intake Note: Patient presents for six month follow-up, anoscopy. Pt c/o; no complaints. 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 She had an anal Pap last August, because of her history of HIV. This showed atypical squamous cells of uncertain significance. She denies any bleeding or any anal complaints She is severely visually impaired since childhood. She denies any problems with bowel movements. She has never had any HIV related diseases. [facility] Medical History Pap smear of anus with ASCUS Osteoporosis Chronic venous insufficiency of lower extremity HIV (human immunodeficiency virus infection) Glaucoma Surgical History H/O colonoscopy Social History Are you a primary professional healthcare representative to a significant other at home: No Do you presently have visiting nurse or other home services: No Patient Tobacco Use Status: Never used Tobacco Review of Systems Const Denies chills and Denies fever(s) Card Denies chest pain at rest Resp Denies cough GI Denies abdominal pain Denies difficulty voiding Physical Exam Vital Signs: Last Vital Signs Pulse 70 10/08/25 13:12 BP 142/64 H 10/08/25 13:12 BMI result Body Mass Index 17.6 Const General: comfortable and no acute distress Resp Effort & Inspection: normal respiratory effort Cardio Rate: regular rate GI Other: Rectal exam shows some external hemorrhoids with no obvious perianal lesions Palpation (GI): Soft to palpation, not firm and nontender Office Procedures Anoscopy She was in óscar-knife position. The anoscope was gently inserted. A full examination of the entire anal canal was done. There were no obvious lesions seen. There was no abnormal looking lining of the anal canal. She did have small hemorrhoids, both internal external. There was no bleeding or or induration on digital exam. [id number] Assessment & Plan Assessment & Plan (1) Pap smear of anus with ASCUS: Code(s): R85.610 - Atypical squamous cells of undetermined significance on cytologic smear of anus (ASC-US) Category: Medical Plan: Current exam including anoscopy does not suggest any lesions. She had a low- grade lesion on Pap smear in 2023. I will see her again in the office in about 6 months for another anoscopic exam. She understands the plan well. Coding Level of Care Code Est Pt Level 3 (91467) Diagnoses Pap smear of anus with ASCUS R85.610 CPT Codes Details - CPT: 05896-Lvmrdkrp ([id number])
[2025-10-08 13:12] VITALS: BP 142/64; PULSE 70; BMI 17.6
== END 2025-10-08 13:36 | disposition home or self-care (01) ==
LOC: HO.HGS 12:56
PROVIDERS: Visit Provider Surgery
DX: R85.610 Atypical squamous cells of undetermined significance on cytologic smear of anus (ASC-US) (principal)
CPT/HCPCS: 46600; 99213

== ENCOUNTER → 2025-10-08 12:55 | Outpatient (BNVA) | payer OTHER, SELFPAY | PROVIDERS: Visit Provider Surgery | DX: Z21 Asymptomatic human immunodeficiency virus [HIV] infection status (principal); R85.610 Atypical squamous cells of undetermined significance on cytologic smear of anus (ASC-US) | CPT/HCPCS: 46600; 99212 ==